=== PATIENT | male | born 1940 | race Caucasian/White ===

== ENCOUNTER → 2018-07-08 | Outpatient (CLI) | payer MEDICARE ==
--- NOTE | 2018-07-08 23:28 | CONS ---
CONSULTATION DATE OF SERVICE: 07/08/2018 77-year-old gentleman who has been evaluated in the [facility] for symptoms of significant excessive daytime sleepiness. HISTORY OF PRESENT ILLNESS/SLEEP-WAKE EVALUATION: SLEEP SCHEDULE: Patient usually goes to bed late, around midnight and after that he may wake up at about 1-1/2 hour. FALLING ASLEEP: Has difficulties to fall asleep for 3 hours. Finally he gets out of bed around 9 or 10 a.m. DURING SLEEP: He does snore but mildly. He never had been told about episodes of stopped breathing during the sleep. He may wake up from sleep up to 3 times with up to 3 episodes of nocturia. He usually sleeps on the side position. DURING THE DAY/SLEEP WAKE EVALUATION: In the morning, he wakes up tired, falling asleep during the day, worry about his sleep. Episodes of irritability and depression. [place] Sleepiness Scale significantly increased to 19, including episodes of sleepiness while driving a car. No clear history of hypnagogic hallucinations, sleep paralysis or cataplexy. Sometimes patient falls asleep in the middle of the day unpredictably. He does not have any scheduled nap, but he may fall asleep in different situation during the day when he is not busy. PAST MEDICAL HISTORY: Positive for hepatitis, diabetes mellitus, hyperlipidemia, acid reflux, hypertension, coronary artery disease. PAST SURGICAL HISTORY: Stent insertions to coronary arteries and total left knee replacement. MEDICATIONS: Hydrocodone, fluticasone, metoprolol, metformin, glyburide, simvastatin, omeprazole, lisinopril, modafinil. [place] Sleepiness Scale is 19. FAMILY HISTORY: Hypertension, hyperlipidemia, cancer, snoring. REVIEW OF SYSTEMS: Sometimes awakenings from sleep and significant excessive daytime sleepiness. Symptoms of sleepiness are every day. PHYSICAL EXAM: GENERAL: gentleman without distress. VITAL SIGNS: BP 168/85, HR 81, RR 18, height 5 feet and 7 inches, weight 174.4 pounds, temperature 98.0. Oxygen saturation: 98%. Body mass index 29.8. HEENT: Oropharynx low position of soft palate. Mallampati III. Wide pillars. Wide neck 16 inches in circumference. Neck Supple, no JVD. Thyroid is not palpable. LUNGS Clear to percussion and to auscultation. Good air exchange. No wheezing or rhonchi. HEART S1, S2 regular. No murmurs, gallops, or rubs. ABDOMEN: Obese. Soft and nontender. Bowel sounds are present. No organomegaly appreciated. EXTREMITIES No clubbing or cyanosis. INSPECTOR FLOOR SUB ASSEMBLY Awake, alert, and oriented X3. Cranial nerves 2 to 7 intact. There is no fasciculation or atrophy. noted. No focal deficits observed. IMPRESSION: 1. Mild snoring, small oropharyngeal air space, occasional awakenings from sleep, possible obstructive sleep apnea-hypopnea syndrome. 2. Wide neck possible obstructive sleep apnea-hypopnea syndrome. 3. Significant excessive daytime sleepiness. [place] Sleepiness Scale is 19. Patient is able to sleep at any time if he is not busy. Differential diagnosis includes hypersomnia including narcolepsy. 4. History hypertension. 5. Coronary artery disease, status post stent insertion. 6. Diabetes mellitus. 7. History of hepatitis. 8. Status post nasal surgery for nasal septum deviation. 9. Status post total left knee replacement. PLAN: 1. Multiple sleep latency test if sleep study will be negative for obstructive sleep apnea-hypopnea syndrome. 2. Polysomnography for evaluation of patient's breathing during sleep. 3. CPAP/BiPAP titration if sleep study confirms obstructive sleep apnea-hypopnea syndrome. 4. Preferable position during sleep on the side. 5. No driving if patient feels any sleepiness. 6. I will see patient for follow up visit to explain results of testing and following plan. Thank you very much for referring this patient for consultation. Sincerely, Kolton Cardozo MD, PhD, FAASM Diplomat of [place] [employer] [place] [employer] [place] Department Worker of [facility] [place] MMODL / IJN: [id number] /
== END ==
LOC: SLEEP 13:36
PROVIDERS: ATTEND Internal Medicine
DX: G47.10 Hypersomnia, unspecified (principal); I10 Essential (primary) hypertension; I25.10 Atherosclerotic heart disease of native coronary artery without angina pectoris; E11.9 Type 2 diabetes mellitus without complications; Z86.19 Personal history of other infectious and parasitic diseases; Z98.890 Other specified postprocedural states; Z96.652 Presence of left artificial knee joint; Z95.5 Presence of coronary angioplasty implant and graft; Z79.899 Other long term (current) drug therapy; Z79.891 Long term (current) use of opiate analgesic; Z79.84 Long term (current) use of oral hypoglycemic drugs
CPT/HCPCS: 99211

== ENCOUNTER → 2020-06-06 | Outpatient (CLI) | payer MEDICARE ==
--- NOTE | 2020-06-06 16:42 | SFUN ---
SLEEP CENTER FOLLOW UP NOTE DATE OF SERVICE: 06/06/2020 79-year-old gentleman who has been followed in Sleep Center for treatment of significant excessive daytime sleepiness and possible obstructive sleep apnea-hypopnea syndrome. I saw patient in July of 2018, and at that time because of significant excessive daytime sleepiness, and indication of possible sleep apnea, sleep study was ordered, but because his multiple times came to the hospital and for that reason, patient was not able to proceed with the sleep test. Presently, he continued to have continued to have sleep problems. Wakes up from sleep 3 times with 3 episodes of nocturia. He feels significantly sleepy during the day. [place] Sleepiness Scale is 19. MEDICATIONS: Hydrocodone acetaminophen 7.5/325 mg 1-2 times a day, fluticasone, metoprolol tartrate 25 mg twice a day, metformin 1000 mg twice a day, glyburide 5 mg, simvastatin 40 mg once a day, omeprazole 20 mg once a day, lisinopril 20 mg twice a day. Modafinil 200 mg once a day, Sertraline 50 mg once a day. PHYSICAL EXAM: Patient in no distress. BP 140/79, HR 57, RR 14, height 5 feet 7 inches, weight 173.4, temperature 98.5, oxygen saturation at room air 99%. HEENT: PERRLA, EOMI. Oropharynx low position of soft palate. Mallampati 3. NECK: Supple, no JVD. Thyroid is not palpable. LUNGS: Clear to percussion and to auscultation. Good air exchange. No wheezing or rhonchi. HEART: S1, S2 regular. No murmurs, gallops, or rubs. ABDOMEN: Soft and nontender. Bowel sounds are present. No organomegaly appreciated. EXTREMITIES: No clubbing or cyanosis. HEALTH PLAN MANAGER: Awake, alert, and oriented X3. Cranial nerves 2 to 7 intact. There is no fasciculation or atrophy. noted. No focal deficits observed. IMPRESSION: 1. Snoring, extremely low position of soft palate, multiple awakenings from sleep, sleepiness, possible obstructive sleep apnea-hypopnea syndrome. 2. Significant excessive daytime sleepiness. [place] Sleepiness Scale is 19. Differential diagnosis includes hypersomnia and narcolepsy type 2. 3. Hypertension. 4. Coronary artery disease, status post stent insertion. 5. Diabetes mellitus. 6. History of hepatitis. 7. Status post nasal surgery for nasal septum deviation. 8. Status post total left knee replacement. PLAN: 1. Home sleep apnea test to check patient breathing during sleep. 2. The patient is a candidate for multiple sleep latency test for objective evaluation of symptoms of excessive daytime sleepiness. 3. Sleep hygiene with regular time in bed for 7-1/2 to 8 hours. 4. No driving if feeling sleepiness. 5. I will see patient for follow-up visit to explain results of the test and following plan. Thank you very much for allowing me to participate in management of your patient. Sincerely, Kolton Cardozo MD, PhD, FAASM Diplomat of [place] [employer] [place] [employer] Barrel Dedenting Machine Operator of [facility] [place] MMODL / OELGN: [id number] /
== END | disposition home or self-care (01) ==

== ENCOUNTER → 2021-12-20 | Outpatient (CLI) | payer MEDICARE ==
[2021-12-20 15:19] LABS: HCT 36.3 % (39.6-50.0); MCH 28.8 pg (27.0-32.0); MCHC 33.1 g/dL (32.0-37.0); MCV 87.1 fL (80.0-97.0); NRBC Per 100 WBC 0 /100 WBCS (0.0-0.0); Platelet Count 264 X 10*3/uL (140-440); RBC 4.17 X 10*6/uL (4.40-5.60); RDW 14.2 % (11.5-14.5)
[2021-12-20 16:22] LABS: ALT 24 U/L (10-49); AST 25 U/L (14-35); African American GFR (CKD) 60.1 (60.0-200.0); BUN/Creat Ratio 11.08 Ratio (12.00-20.00); Blood Urea Nitrogen 14.4 mg/dL (9.0-27.0); Calcium 9.4 mg/dL (8.7-10.3); Carbon Dioxide 22.3 mmol/L (20.0-27.5); Chloride 102 mmol/L (96-109); Glucose 161 mg/dL (70-110); Non-African American GFR(CKD) 51.9 (60.0-200.0); Sodium 134 mmol/L (135-145)
[2021-12-20 16:23] LABS: Chol/HDL Ratio 2.76 Ratio; LDL Cholesterol,Calculated 66.9 mg/dL (0.0-131.0); VLDL Calculation 19.12 mg/dL (5.00-40.00)
== END | disposition home or self-care (01) ==
LOC: LABWHC1 10:42
PROVIDERS: ATTEND Family Medicine
DX: E11.9 Type 2 diabetes mellitus without complications (principal); E78.5 Hyperlipidemia, unspecified; E87.1 Hypo-osmolality and hyponatremia
CPT/HCPCS: 36415; 80048; 80061; 83036; 83930; 84450; 84460; 85027

== ENCOUNTER → 2022-01-21 | Outpatient (CLI) | payer MEDICARE ==
--- NOTE | 2022-01-21 17:15 | MR ---
EXAMINATION TYPE: MR brain wo con DATE OF EXAM: 01/21/2022 4:03 PM COMPARISON: None. CLINICAL INDICATION:Male, 81 years old with history of R26.9 UNSPECIFIED ABNORMALITIES OF GAIT AND MO BILI TECHNIQUE: Multi planar, multi sequence imaging was performed through the brain including: T1, T2, In version recovery, Diffusion weighted imaging, susceptibility weighted imaging, and gradient echo imag ing. No gadolinium was given. FINDINGS: The torres-white junctions, ventricular system, and cisterns appear unremarkable. Scattered foci of hi gh T2 signal intensity are seen within the periventricular white matter. Midline structures show no a bnormality. Diffusion-weighted imaging shows no evidence of restricted diffusion. The susceptibility weighted images do not reveal any evidence for micro-hemorrhage. The bone marrow signal is within normal limits. The paranasal sinuses demonstrate mucosal thickening in the bilateral maxillary sinuses. Bilateral aphakia. There is a right anterior cerebral artery to/anterior communicating artery saccular aneurysm measurin g up to 5 mm. IMPRESSION: 1. No evidence of intracranial mass or acute/subacute infarct. 2. 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 3. Nonspecific white matter changes, likely secondary to small vessel ischemic disease.
== END | disposition home or self-care (01) ==
LOC: RADMRIMAIN 15:16
PROVIDERS: ATTEND Family Medicine
DX: R90.82 White matter disease, unspecified (principal); I67.82 Cerebral ischemia
CPT/HCPCS: 70551

== ENCOUNTER → 2022-10-28 | Outpatient (CLI) | payer MEDICARE ==
[2022-10-28 15:38] LABS: HCT 40.9 % (39.6-50.0); HGB 13.6 d/dL (13.0-17.0); MCH 31.1 pg (27.0-32.0); MCHC 33.3 d/dL (32.0-37.0); MCV 93.6 FL (80.0-97.0); Mean Platelet Volume 10.4 FL (9.5-12.2); NRBC Per 100 WBC 0 X 10*3/uL (0.00-0.01); Platelet Count 216 X 10*3/uL (140-440); RBC 4.37 X 10*6/uL (4.40-5.60); RDW 14.4 % (11.5-14.5); WBC 6.58 X 10*3/uL (4.50-10.00)
[2022-10-28 16:07] LABS: ALT 33 U/L (10-49); AST 32 U/L (14-35); Albumin 4.5 d/dL (3.8-4.9); Albumin/Globulin Ratio 1.41 Ratio (1.60-3.17); Alkaline Phosphatase 58 U/L (41-126); Blood Urea Nitrogen 12.1 mg/dL (9.0-27.0); Calcium 9.4 mg/dL (8.7-10.3); Carbon Dioxide 24.4 mmol/L (21.6-31.8); Chloride 100 mmol/L (96-109); Globulin 3.2 d/dL (1.6-3.3); Glucose 148 mg/dL (70-110); Potassium 4.9 mmol/L (3.5-5.5); Sodium 135 mmol/L (135-145); Total Bilirubin 0.6 mg/dL (0.3-1.2); Total Protein 7.7 d/dL (6.2-8.2)
== END | disposition home or self-care (01) ==
LOC: LABWHC1 11:50
PROVIDERS: ATTEND Family Medicine
DX: I10 Essential (primary) hypertension (principal); E11.9 Type 2 diabetes mellitus without complications; N40.1 Benign prostatic hyperplasia with lower urinary tract symptoms; R41.3 Other amnesia
CPT/HCPCS: 36415; 80053; 82306; 82607; 82746; 83036; 84153; 84443; 85027

== ENCOUNTER → 2022-10-31 | Outpatient (CLI) | payer MEDICARE | END | disposition home or self-care (01) | LOC: LABWHC1 12:01 | PROVIDERS: ATTEND Family Medicine | DX: R71.8 Other abnormality of red blood cells (principal) | CPT/HCPCS: 36415; 83921 ==

== ENCOUNTER → 2023-01-21 | Outpatient (CLI) | payer MEDICARE ==
--- NOTE | 2023-01-21 21:21 | MR ---
EXAMINATION TYPE: MR brain wo/w con DATE OF EXAM: 01/21/2023 6:36 PM CLINICAL INDICATION:Male, 82 years old with history of I67.1 CEREBRAL ANEURYSM NONRUPTURED; PHH, Cere bral aneurysm, dizziness, vertigo, brain fog. COMPARISON: 01/21/2022 TECHNIQUE: Multi planar, multi sequence imaging was performed through the brain including: T1, T2, In version recovery, susceptibility weighted imaging and gradient echo imaging and Diffusion weighted im aging. The patient was then given intravenous contrast and multi planar, T1 fat-saturation images wer e obtained. IV Contrast: 7 cc Gadavist FINDINGS: Redemonstration of right LUIS M/anterior communicating artery saccular aneurysm measuring up to 5 mm. Mi ld cerebral atrophy with proportional dilation of ventricular system. Diffusion-weighted imaging jude ws no evidence of restricted diffusion to suggest acute/subacute infarct. Intracranial arterial flow voids are maintained. Midline structures show no abnormality. Scattered foci of high T2 signal intens ity are seen within the periventricular white matter. The susceptibility weighted images do not revea l any evidence for micro-hemorrhage. After administration of gadolinium, no abnormal enhancement is s een. The bone marrow signal is within normal limits. Paranasal sinuses and mastoid air cells: Mild mucosal thickening of the left maxillary sinus. Visualized orbits: Bilateral aphakia. IMPRESSION: 1. Stable saccular aneurysm arising off the anterior cerebral artery and anterior communicating arter y junction and measures up to 5 mm. 2. No evidence of intracranial mass, acute/subacute infarct, or abnormal enhancement. 3. Nonspecific white matter changes, likely related to small vessel ischemic disease.
== END | disposition home or self-care (01) ==
LOC: RADMRIMAIN 17:51
PROVIDERS: ATTEND Family Medicine
DX: I67.1 Cerebral aneurysm, nonruptured (principal); G93.89 Other specified disorders of brain
CPT/HCPCS: 70553; A9585

== ENCOUNTER → 2023-01-27 | Outpatient (CLI) | payer MEDICARE ==
[2023-01-27 18:16] LABS: HGB 13.3 g/dL (13.0-17.0); MCH 31.5 pg (27.0-32.0); MCHC 33.3 g/dL (32.0-37.0); MCV 94.8 FL (80.0-97.0); Mean Platelet Volume 10.9 FL (9.5-12.2); NRBC Per 100 WBC 0 X 10*3/uL (0.00-0.01); Platelet Count 231 X 10*3/uL (140-440); RBC 4.22 X 10*6/uL (4.40-5.60); RDW 12.9 % (11.5-14.5)
[2023-01-27 20:42] LABS: ALT 39 U/L (10-49); AST 28 U/L (14-35); BUN/Creat Ratio 14.31 Ratio (12.00-20.00); Blood Urea Nitrogen 18.6 mg/dL (9.0-27.0); Calcium 9.9 mg/dL (8.7-10.3); Carbon Dioxide 24.5 mmol/L (21.6-31.8); Chloride 100 mmol/L (96-109); Glucose 71 mg/dL (70-110); Potassium 4.9 mmol/L (3.5-5.5); Prostate Specific Antigen 8.17 ng/mL (0.000-6.500); Sodium 135 mmol/L (135-145)
== END | disposition home or self-care (01) ==
LOC: LABWHC1 13:07
PROVIDERS: ATTEND Family Medicine
DX: I10 Essential (primary) hypertension (principal); N40.1 Benign prostatic hyperplasia with lower urinary tract symptoms; E55.9 Vitamin D deficiency, unspecified
CPT/HCPCS: 36415; 80048; 82306; 83036; 84153; 84450; 84460; 85027

== ENCOUNTER → 2023-02-24 | Outpatient (CLI) | payer MEDICARE ==
--- NOTE | 2023-02-24 17:29 | US ---
EXAMINATION TYPE: US extremity nonvascular ltd RT DATE OF EXAM: 02/24/2023 COMPARISON: NONE CLINICAL INDICATION: Male, 82 years old with history of M71.21 SYNOVIAL CYST OF POPLITEAL SPACE R MIO Gusman; Channel Worker notes: Right popliteal fossa: 6.8 x 1.5 x 3.1cm Nelson's cyst seen with a round 8 mm mural based nodule inferiorly. IMPRESSION: Elongated, moderate-sized Nelson's cyst measuring 6.8 cm long with some mild chronic syno vitis. An 8 mm internal nodule could represent some clumped up synovium or loose body. Reassess at a 3 month follow-up.
== END | disposition home or self-care (01) ==
LOC: RADUSWWP 14:40
PROVIDERS: ATTEND Family Medicine
DX: M71.21 Synovial cyst of popliteal space [Baker], right knee (principal); M65.9 Synovitis and tenosynovitis, unspecified

== ENCOUNTER → 2023-03-21 | Outpatient (CLI) | payer MEDICARE ==
--- NOTE | 2023-03-22 21:50 | MR ---
EXAMINATION TYPE: MR Prostate wo/w con DATE OF EXAM: 03/21/2023 11:07 AM COMPARISON: None. CLINICAL INDICATION:Male, 82 years old with history of R97.20 ELEVATED PSA; Elevated PSA. TECHNIQUE: Multi-planar, multi-sequence imaging of the pelvis is performed prior to and following the uncomplicated administration of bolus intravenous gadolinium. CONTRAST: 6.5 Gadavist Interpretive Criteria: PI-RADS v2.1 SERUM PSA: 8.37 on 01/27/2023. 7.7 on 10/28/2022. SURGICAL PATHOLOGY: No recent data available. FINDINGS: Prostatic dimensions: 5.0 x 7.0 x 4.5 cm. Ellipsoid Volume:82.47 (PSA density=0.10 ng/mL/mL) CENTRAL GLAND (Central and Transition Zones/CZ+TZ): Multiple bilateral, heterogenous appearing hypertrophic stromal nodules, without suspicious lesion. M edian lobe hypertrophy with protrusion into the base of the bladder. (PI-RADS 2) PERIPHERAL ZONE (PZ): Right lateral peripheral zone mid gland low T2 signal with subtle increased DWI signal on T1 B1000 in the lower DWI signal in the B1400 sequences. There is some gas in the rectum which limits evaluation . On the DWI B1000 sequences and may be mildly low ADC signal. Area measures 22 x 19 x 7 mm. (PI-RA DS 3) SEMINAL VESICLES (SV): Symmetric and unremarkable. PERIPROSTATIC TISSUES: Unremarkable. LYMPH NODES: No enlarged pelvic lymph node. REMAINING PELVIS: Bladder wall is within normal limits given distention. No abnormal free or organized intrapelvic fluid collection. No pathologic bowel dilation or mural thickening. No hernia visualized Trace bilateral hydroceles. OSSEOUS STRUCTURES: No suspicious osseous abnormality. IMPRESSION: 1. PI-RADS 3 lesion right peripheral zone mid gland measuring 22 x 19 x 7 mm. Tissue sampling recomme nded. 2. Moderate BPH, estimated gland volume 82.47 mL. 3. No suspicious osseous lesion. No lymphadenopathy. No evidence of prostate adenocarcinoma involving the periprostatic tissues.
== END | disposition home or self-care (01) ==
LOC: RADMRIMAIN 09:45
PROVIDERS: ATTEND Urology
DX: N40.0 Benign prostatic hyperplasia without lower urinary tract symptoms (principal); R97.20 Elevated prostate specific antigen [PSA]
CPT/HCPCS: 72197; A9585

== ENCOUNTER → 2023-04-24 | Outpatient (CLI) | payer MEDICARE ==
[2023-04-24 19:02] LABS: Basophils # (A) 0.06 X 10*3/uL (0.00-0.10); Basophils % (A) 0.7 %; Eosinophils # (A) 0.27 X 10*3/uL (0.04-0.35); Eosinophils % (A) 3.3 %; HCT 43.2 % (39.6-50.0); HGB 14.3 g/dL (13.0-17.0); Lymphocytes # (A) 1.84 X 10*3/uL (0.90-5.00); Lymphocytes % (A) 22.7 %; MCH 31.2 pg (27.0-32.0); MCHC 33.1 g/dL (32.0-37.0); MCV 94.3 FL (80.0-97.0); Monocytes # (A) 0.87 X 10*3/uL (0.20-1.00); Monocytes % (A) 10.7 %; NRBC Per 100 WBC 0 X 10*3/uL (0.00-0.01); Neutrophils # (A) 5.05 X 10*3/uL (1.80-7.70); Neutrophils % (A) 62.2 %; Platelet Count 252 X 10*3/uL (140-440); RBC 4.58 X 10*6/uL (4.40-5.60); WBC 8.12 X 10*3/uL (4.50-10.00)
[2023-04-24 20:06] LABS: BUN/Creat Ratio 18.33 Ratio (12.00-20.00); Calcium 10.1 mg/dL (8.7-10.3); Carbon Dioxide 25.1 mmol/L (21.6-31.8); Chloride 96 mmol/L (96-109); Glucose 128 mg/dL (70-110); Potassium 4.7 mmol/L (3.5-5.5); Sodium 137 mmol/L (135-145)
== END | disposition home or self-care (01) ==
LOC: LABPAT 13:20
PROVIDERS: ATTEND Urology
DX: Z01.812 Encounter for preprocedural laboratory examination (principal); R97.20 Elevated prostate specific antigen [PSA]
CPT/HCPCS: 80048; 85025

== ENCOUNTER 2023-04-30 10:06 | Day surgery (SDC) | payer MEDICARE ==
--- NOTE | 2023-04-28 16:31 | P.GSHP ---
History of Present Illness H&P Date: 04/28/23 Chief Complaint: Elevated PSA level The patient is an 82-year-old white male with a family history of prostate cancer. His PSA level has been persistently elevated and was most recently 8.17 in January 2023. He has undergone 3 previous prostate biopsies, most recently in 2002. Recent MRI has shown a prostate volume of 82 cc with a 2 cm PI-RADS 3 lesion within the right peripheral zone, mid gland. He now comes for MRI fusion biopsies. He has chronic urinary retention, for which he self catheterizes 4 times daily. - Cardiovascular Cardiovascular: Reports high blood pressure - Genitourinary (Male) Genitourinary: Reports urinary retention Past Medical History Past Medical History: Diabetes Mellitus, GERD/Reflux, Hearing Disorder / Deafness, Hyperlipidemia, Hypertension, Osteoarthritis (OA), Prostate Disorder Additional Past Medical History / Comment(s): elevated PSA, fatty liver, vertigo History of Any Multi-Drug Resistant Organisms: None Reported Past Surgical History: Heart Catheterization With Stent, Hernia Repair, Joint Replacement Additional Past Surgical History / Comment(s): left knee replaced x2, deviated septum repair Past Anesthesia/Blood Transfusion Reactions: No Reported Reaction Date of Last Stent Placement:: unk Smoking Status: Former smoker Medications and Allergies Home Medications Medication Instructions Recorded Confirmed Type Ferosul 325 mg PO DAILY 04/28/23 04/28/23 History Metoprolol Tartrate 25 mg PO QAM 04/28/23 04/28/23 History NIFEdipine [Adalat CC] 30 mg PO DAILY 04/28/23 04/28/23 History Omeprazole [PriLOSEC] 20 mg PO AC-BRKFST 04/28/23 04/28/23 History Simvastatin [Zocor] 40 mg PO HS 04/28/23 04/28/23 History lisinopriL [Zestril] 20 mg PO BID 04/28/23 04/28/23 History metFORMIN HCL [Glucophage] 1,000 mg PO QAM 04/28/23 04/28/23 History metFORMIN HCL [Glucophage] 500 mg PO HS 04/28/23 04/28/23 History sitaGLIPtin [Januvia] 100 mg PO DAILY 04/28/23 04/28/23 History Allergies Allergy/AdvReac Type Severity Reaction Status Date / Time No Known Allergies Allergy Verified 04/28/23 11:10 Surgical - Exam - General well developed, well nourished, no distress - Respiratory normal respiratory effort - Abdomen Abdomen: soft, non tender, no guarding, no rigid, no rebound - Genitourinary normal penis with no external lesions, testicles non-tender - Rectum Rectum: normal sphincter tone, no masses, other (Prostate moderately enlarged but smooth) - Psychiatric oriented to time, oriented to person, oriented to place, speech is normal, memory intact Assessment and Plan (1) Elevated prostate specific antigen [PSA] Status: Acute Code(s): R97.20 - ELEVATED PROSTATE SPECIFIC ANTIGEN [PSA] SNOMED Code(s): 108518541 Plan: The patient will undergo MRI-Ultrasound fusion transrectal biopsies of the prostate. The procedure has been reviewed in detail with the patient. He has been made aware of potential risks, which include anesthesia, bleeding, and infection. He is also aware that a negative biopsy does not completely rule out prostate cancer.
[~2023-04-30 10:06] MED LIST: HYDROmorphone 0.5 MG/0.5 ML SYRINGE IVP PRN
[2023-04-30] MEDS: GENTAMICIN 40 MG/ML 2 ML VIAL IM PRN (10:45)
[2023-04-30] MEDS: DEXAMETHASONE SOD PHOSPHATE 4 MG/ML 1 ML VIAL IV ONE (10:57)
[2023-04-30] MEDS: ONDANSETRON 4 MG/2 ML VIAL IVP ONE (10:57)
[2023-04-30] MEDS: LACTATED RINGERS 1,000 ML IV SCH (10:57)
[2023-04-30 11:04] LABS: Glucose,Whole Blood 129 mg/dL (70-110)
[2023-04-30 11:07] VITALS: TEMP 99
[2023-04-30] MEDS ORDERED: PROPOFOL 10 MG/ML 20 ML VIAL IV ONE (11:52)
--- NOTE | 2023-04-30 12:16 | P.OP ---
Date of Procedure: 04/30/23 Preoperative Diagnosis: Elevated PSA level Postoperative Diagnosis: Same Procedure(s) Performed: MRI ultrasound-guided fusion biopsies of the prostate Anesthesia: MAC Surgeon: Loki Melgar Estimated Blood Loss (ml): 5 IV fluids (ml): 100 Pathology: other (Prostate biopsies) Condition: stable Disposition: PACU Indications for Procedure: The patient is an 82-year-old white male with a family history of prostate cancer. His PSA level has been persistently elevated and was most recently 8.17 in January 2023. He has undergone 3 previous prostate biopsies, most recently in 2002. Recent MRI has shown a prostate volume of 82 cc with a 2 cm PI-RADS 3 lesion within the right peripheral zone, mid gland. He now comes for MRI fusion biopsies. He has chronic urinary retention, for which he self catheterizes 4 times daily. Operative Findings: 12 template biopsies sent, along with 3 biopsies from right apical peripheral zone target lesion. Description of Procedure: The patient was taken to the operating room and placed in the left lateral decubitus position. NAOMIE revealed the prostate to be moderately enlarged, with right base prominence but no nodules. The [employer] transrectal ultrasound probe was placed intrarectally. It was then placed within the stand of the [employer] MRI/TRUS Fusion for Prostate Biopsy system. The prostate was imaged in both the axial and sagittal planes, revealing a prostate volume of 63.3 mL. Using the Biopty gun, 3 biopsies were obtained from the target lesion labeled right anterior posteromedial peripheral zone. The remaining 12 biopsies of the peripheral zone were obtained utilizing a standard template. Once the procedure was completed, the ultrasound probe was removed. The patient tolerated the procedure well was taken to the recovery room stable condition.
[2023-04-30 12:43] VITALS: RESP 16
[2023-04-30 13:15] VITALS: BP 115/74; PULSE 60
== END 2023-04-30 12:56 | disposition home or self-care (01) ==
LOC: OR 10:06
PROVIDERS: ATTEND Urology
DX: C61 Malignant neoplasm of prostate (principal); E11.9 Type 2 diabetes mellitus without complications; E78.5 Hyperlipidemia, unspecified; I10 Essential (primary) hypertension; K21.9 Gastro-esophageal reflux disease without esophagitis; Z79.84 Long term (current) use of oral hypoglycemic drugs; Z87.891 Personal history of nicotine dependence; Z79.899 Other long term (current) drug therapy
CPT/HCPCS: 55700; J1580; J1100; J2405; J2704; 88305; 88344

== ENCOUNTER → 2023-06-18 | Outpatient (CLI) | payer MEDICARE ==
[2023-06-18 18:48] LABS: HGB 14.2 g/dL (13.0-17.0); MCH 30.5 pg (27.0-32.0); MCHC 32.3 g/dL (32.0-37.0); MCV 94.4 FL (80.0-97.0); Mean Platelet Volume 11.1 FL (9.5-12.2); NRBC Per 100 WBC 0 X 10*3/uL (0.00-0.01); Platelet Count 250 X 10*3/uL (140-440); RBC 4.66 X 10*6/uL (4.40-5.60); RDW 13.2 % (11.5-14.5); WBC 8.49 X 10*3/uL (4.50-10.00)
[2023-06-18 19:34] LABS: ALT 26 U/L (10-49); AST 22 U/L (14-35); Albumin 4.6 g/dL (3.8-4.9); Albumin/Globulin Ratio 1.18 Ratio (1.60-3.17); Alkaline Phosphatase 65 U/L (41-126); BUN/Creat Ratio 16.92 Ratio (12.00-20.00); Calcium 9.9 mg/dL (8.7-10.3); Chloride 100 mmol/L (96-109); Chol/HDL Ratio 4.16 Ratio; Globulin 3.9 g/dL (1.6-3.3); Glucose 126 mg/dL (70-110); LDL Cholesterol,Calculated 151.8 mg/dL (0.0-131.0); Potassium 4.4 mmol/L (3.5-5.5); Sodium 137 mmol/L (135-145); Total Bilirubin 0.7 mg/dL (0.3-1.2); Total Protein 8.5 g/dL (6.2-8.2)
== END | disposition home or self-care (01) ==
LOC: LABWHC1 13:26
PROVIDERS: ATTEND Family Medicine
DX: I10 Essential (primary) hypertension (principal); E11.9 Type 2 diabetes mellitus without complications; E78.5 Hyperlipidemia, unspecified; E55.9 Vitamin D deficiency, unspecified
CPT/HCPCS: 36415; 80053; 80061; 82306; 83036; 84443; 85027

== ENCOUNTER → 2023-07-29 | Outpatient (CLI) | payer MEDICARE | END | disposition home or self-care (01) | LOC: LABWHC1 16:07 | PROVIDERS: ATTEND Urology | DX: C61 Malignant neoplasm of prostate (principal) | CPT/HCPCS: 36415; 84153 ==

== ENCOUNTER → 2023-12-17 | Outpatient (CLI) | payer MEDICARE | END | disposition home or self-care (01) | LOC: LABWHC1 15:01 | PROVIDERS: ATTEND Urology | DX: C61 Malignant neoplasm of prostate (principal) | CPT/HCPCS: 36415; 84153 ==

== ENCOUNTER → 2024-01-04 | Outpatient (CLI) | payer MEDICARE ==
[2024-01-05 02:52] LABS: Basophils # (A) 0.03 X 10*3/uL (0.00-0.10); Basophils % (A) 0.4 %; Eosinophils # (A) 0.09 X 10*3/uL (0.04-0.35); Eosinophils % (A) 1.3 %; HCT 39.9 % (39.6-50.0); HGB 12.9 g/dL (13.0-17.0); Lymphocytes # (A) 1.88 X 10*3/uL (0.90-5.00); MCH 30.7 pg (27.0-32.0); MCHC 32.3 g/dL (32.0-37.0); Monocytes # (A) 0.79 X 10*3/uL (0.20-1.00); Monocytes % (A) 11.4 %; NRBC Per 100 WBC 0 X 10*3/uL (0.00-0.01); Neutrophils # (A) 4.15 X 10*3/uL (1.80-7.70); Neutrophils % (A) 59.6 %; Platelet Count 233 X 10*3/uL (140-440); RDW 13.5 % (11.5-14.5); WBC 6.96 X 10*3/uL (4.50-10.00)
[2024-01-05 03:39] LABS: % Iron Saturation 24.48 (15.00-50.00); ALT 28 U/L (10-49); AST 30 U/L (14-35); BUN/Creat Ratio 19.17 Ratio (12.00-20.00); Calcium 9.8 mg/dL (8.7-10.3); Carbon Dioxide 22.7 mmol/L (21.6-31.8); Chloride 100 mmol/L (96-109); Glucose 92 mg/dL (70-110); Iron 82 UG/DL (65-175); Potassium 5.1 mmol/L (3.5-5.5); Sodium 135 mmol/L (135-145); Total Iron Binding Capacity 335 UG/DL (228-460)
== END | disposition home or self-care (01) ==
LOC: LABWHC1 14:47
PROVIDERS: ATTEND Family Medicine
CPT/HCPCS: 36415; 80048; 82306; 82728; 83036; 83540; 83550; 84443; 84450; 84460; 85025

== ENCOUNTER → 2024-01-21 | Outpatient (CLI) | payer MEDICARE | END | disposition home or self-care (01) | LOC: LABWHC1 12:28 | PROVIDERS: ATTEND Urology | DX: R97.20 Elevated prostate specific antigen [PSA] (principal) | CPT/HCPCS: 36415; 84153 ==

== ENCOUNTER 2024-04-01 15:05 | Inpatient (IN) | payer MEDICARE ==
[2024-04-01] MEDS: SODIUM CHLORIDE 0.9% 1,000 ML IV STA (16:42)
--- NOTE | 2024-04-01 16:55 | ED ---
Weakness HPI - General Chief complaint: Weakness Stated complaint: cough,fever Time Seen by Provider: 04/01/24 15:57 Source: patient, RN/MD, RN notes reviewed Mode of arrival: ambulatory Limitations: no limitations - History of Present Illness Initial comments: This is an 83-year-old male who presents to the emergency department for a cough and weakness. Patient states that he developed a cough 4 days ago. States that he has felt increasingly weak and fatigued. He has had the chills but has not taken his temperature. Denies any chest pain or shortness of breath. Also denies any sick contacts. He went to urgent care earlier today but was advised to come here for further evaluation due to low blood pressure and an elevated temperature. Patient is somewhat of a poor historian and not wanting to provide much history. There was report that he had fallen over the last couple of days but had been too weak to get himself up quickly. MD Complaint: generalized weakness - Related Data Home Medications Medication Instructions Recorded Confirmed Omeprazole [PriLOSEC] 20 mg PO DAILY 04/28/23 04/01/24 metFORMIN HCL [Glucophage] 1,000 mg PO DAILY 04/28/23 04/01/24 metFORMIN HCL [Glucophage] 500 mg PO W/SUPPER 04/28/23 04/01/24 sitaGLIPtin [Januvia] 100 mg PO DAILY 04/28/23 04/01/24 Albuterol Inhaler [Ventolin Hfa 2 puff INHALATION RT-Q4H PRN 04/01/24 04/01/24 Inhaler] Benzonatate [Tessalon Perle] 200 mg PO DIRECTED PRN 04/01/24 04/01/24 Meclizine [Antivert] 12.5 mg PO TID PRN 04/01/24 04/01/24 NIFEdipine XL [Procardia Xl] 30 mg PO DAILY 04/01/24 04/01/24 Nirmatrelvir/Ritonavir [Paxlovid 1 dose PO DIRECTED 04/01/24 04/01/24 150-100 mg Dose Pack] tadalafiL 20 mg PO DAILY PRN 04/01/24 04/01/24 Allergies Allergy/AdvReac Type Severity Reaction Status Date / Time No Known Allergies Allergy Verified 04/01/24 19:14 Review of Systems ROS Statement: Those systems with pertinent positive or pertinent negative responses have been documented in the HPI. ROS Other: All systems not noted in ROS Statement are negative. Past Medical History Past Medical History: Diabetes Mellitus Past Surgical History: Joint Replacement Smoking Status: Former smoker Past Alcohol Use History: None Reported Past Drug Use History: None Reported General Exam Limitations: no limitations General appearance: alert, in no apparent distress Head exam: Present: atraumatic, normocephalic, normal inspection Respiratory exam: Present: normal lung sounds bilaterally. Absent: respiratory distress, wheezes, rales, rhonchi, stridor Cardiovascular Exam: Present: regular rate, normal rhythm, normal heart sounds. Absent: systolic murmur, diastolic murmur, rubs, gallop, clicks Neurological exam: Present: alert, oriented X3, CN II-XII intact Psychiatric exam: Present: normal affect, normal mood Skin exam: Present: warm, dry, intact, normal color. Absent: rash Course Vital Signs 04/01/24 04/01/24 04/01/24 15:42 17:35 19:25 Temperature 99.5 F 99.2 F 99.2 F Pulse Rate 75 70 57 L Pulse Rate [ Pulse Oximetery ] Respiratory 18 19 18 Rate Blood Pressure 105/58 134/76 131/82 Blood Pressure [Right Arm] O2 Sat by Pulse 96 98 96 Oximetry 04/01/24 04/01/24 21:08 21:30 Temperature 99.0 F 98.1 F Pulse Rate 56 L Pulse Rate [ 58 L Pulse Oximetery ] Respiratory 16 16 Rate Blood Pressure 135/97 Blood Pressure 142/74 [Right Arm] O2 Sat by Pulse 97 98 Oximetry Medical Decision Making - Medical Decision Making This is an 83 year old male who presents to the emergency department for weakness and a cough. Was pt. sent in by a medical professional or institution? @ -No Did you speak to anyone other than the patient for history? @ -No Did you review nursing and triage notes? @ -Yes, and I agree, it is accurate with regards to the patient's symptoms. Were old charts reviewed? @ -No Differential Diagnosis? @ -Differential Weakness: Hypoglycemia, shock, sepsis, hyponatremia, anemia, infection, CT, ETOH, adverse medicine reaction, overdose, stroke, this is not meant to be an all-inclusive li st. EKG interpreted by me (3pts min.)? @ -EKG interpreted by me demonstrating the following: Sinus rhythm. Ventricular rate 67 bpm, CA interval 144 ms, QRS duration 143 ms, QTc 450 ms. X-rays interpreted by me (1pt min.)? @ -Chest x-ray obtained, my interpretation identifies no localized consolidations or infiltrates. CT interpreted by me (1pt min.)? @ -Not obtained U/S interpreted by me (1pt. min.)? @ -Not obtained What testing was considered but not performed? (CT, X-rays, U/S, labs)? Why? @ -None What meds were considered but not given? Why? @ -None Did you discuss the management of the patient with other professionals? @ -Yes, Perez Hess with [facility], who accepts the patient for admission. Did you reconcile home meds? @ -Yes Was smoking cessation discussed for >3mins.? @ -No Was critical care preformed (if so, how long)? @ -No Were there social determinants of health that impacted care today? How? (Homelessness, low income, unemployed, alcoholism, drug addiction, transportation, low edu. Level, literacy, decrease access to med. care, fdc, rehab)? @ -No Was there de-escalation of care discussed even if they declined? (Discuss DNR or withdrawal of care, Hospice)? @ -No What co-morbidities impacted this encounter? (DM, HTN, Smoking, COPD, CAD, Cancer, CVA, Hep., AIDS, mental health diagnosis, sleep apnea, morbid obesity)? @ -DM Was patient admitted / discharged? @ -Admitted. Lab work demonstrates signs of dehydration and an elevated troponin of 0.268. Patient positive for COVID-19. Chest x-ray reveals no acute process. Patient currently denying any chest pain. However, he has been downplaying his symptoms and is not a great historian. He has reportedly been very weak however. The elevated troponin could be related to the COVID-19. He was given 324mg of aspirin, however in discussion with ED attending we opted to avoid putting him on heparin for the meantime as he was not experiencing any active chest pain. Patient admitted to medicine for the elevated troponin and COVID-19. Serial troponins ordered and consult was placed for cardiology. Case discussed with ED attending Dr. Galo. Undiagnosed new problem with uncertain prognosis? @ -None Drug Therapy requiring intensive monitoring for toxicity (Heparin, Nitro, Insulin, Cardizem)? @ -None Were any procedures done? @ -None Diagnosis/symptom? @ -COVID-19, elevated troponin Acute, or Chronic, or Acute on Chronic? @ -Acute Uncomplicated (without systemic symptoms) or Complicated (systemic symptoms)? @ -Complicated Side effects of treatment? @ -None Exacerbation, Progression, or Severe Exacerbation] @ -Not applicable Poses a threat to life or bodily function? @ -Yes, if due to ACS can be life-threatening - Lab Data Result diagrams: 04/01/24 16:22 04/01/24 16:22 Lab Results 04/01/24 04/01/24 04/01/24 Range/Units 16:15 16:22 16:22 WBC 5.9 (3.8-10.6) k/uL RBC 4.55 (4.30-5.90) m/uL Hgb 13.4 (13.0-17.5) gm/dL Hct 41.5 (39.0-53.0) % MCV 91.3 (80.0-100.0) fL MCH 29.5 (25.0-35.0) pg MCHC 32.4 (31.0-37.0) g/dL RDW 13.5 (11.5-15.5) % Plt Count 189 (150-450) k/uL MPV 8.2 Neutrophils % 70 % Lymphocytes % 17 % Monocytes % 9 % Eosinophils % 1 % Basophils % 1 % Neutrophils # 4.1 (1.3-7.7) k/uL Lymphocytes # 1.0 (1.0-4.8) k/uL Monocytes # 0.6 (0-1.0) k/uL Eosinophils # 0.1 (0-0.7) k/uL Basophils # 0.0 (0-0.2) k/uL Sodium 136 L (137-145) mmol/L Potassium 4.4 (3.5-5.1) mmol/L Chloride 98 (98-107) mmol/L Carbon Dioxide 25 (22-30) mmol/L Anion Gap 13 mmol/L BUN 26 H (9-20) mg/dL Creatinine 1.41 H (0.66-1.25) mg/dL Est GFR (CKD-EPI)AfAm 54 (>60 ml/min/1.73 sqM) Est GFR (CKD-EPI)NonAf 47 (>60 ml/min/1.73 sqM) Glucose 120 H (74-99) mg/dL Plasma Lactic Acid Shubham (0.7-2.0) mmol/L Calcium 9.5 (8.4-10.2) mg/dL Total Bilirubin 0.8 (0.2-1.3) mg/dL AST 27 (17-59) U/L ALT 19 (4-49) U/L Alkaline Phosphatase 61 (38-126) U/L Troponin I (0.000-0.034) ng/mL NT-Pro-B Natriuret Pep 1050 pg/mL Total Protein 8.9 H (6.3-8.2) g/dL Albumin 4.5 (3.5-5.0) g/dL Influenza Type A (PCR) Not Detected (Not Detectd) Influenza Type B (PCR) Not Detected (Not Detectd) RSV (PCR) Not Detected (Not Detectd) SARS-CoV-2 (PCR) Detected A (Not Detectd) 04/01/24 04/01/24 04/01/24 Range/Units 16:22 16:22 19:25 WBC (3.8-10.6) k/uL RBC (4.30-5.90) m/uL Hgb (13.0-17.5) gm/dL Hct (39.0-53.0) % MCV (80.0-100.0) fL MCH (25.0-35.0) pg MCHC (31.0-37.0) g/dL RDW (11.5-15.5) % Plt Count (150-450) k/uL MPV Neutrophils % % Lymphocytes % % Monocytes % % Eosinophils % % Basophils % % Neutrophils # (1.3-7.7) k/uL Lymphocytes # (1.0-4.8) k/uL Monocytes # (0-1.0) k/uL Eosinophils # (0-0.7) k/uL Basophils # (0-0.2) k/uL Sodium (137-145) mmol/L Potassium (3.5-5.1) mmol/L Chloride (98-107) mmol/L Carbon Dioxide (22-30) mmol/L Anion Gap mmol/L BUN (9-20) mg/dL Creatinine (0.66-1.25) mg/dL Est GFR (CKD-EPI)AfAm (>60 ml/min/1.73 sqM) Est GFR (CKD-EPI)NonAf (>60 ml/min/1.73 sqM) Glucose (74-99) mg/dL Plasma Lactic Acid Shubham 1.6 (0.7-2.0) mmol/L Calcium (8.4-10.2) mg/dL Total Bilirubin (0.2-1.3) mg/dL AST (17-59) U/L ALT (4-49) U/L Alkaline Phosphatase (38-126) U/L Troponin I 0.268 H* 0.250 H* (0.000-0.034) ng/mL NT-Pro-B Natriuret Pep pg/mL Total Protein (6.3-8.2) g/dL Albumin (3.5-5.0) g/dL Influenza Type A (PCR) (Not Detectd) Influenza Type B (PCR) (Not Detectd) RSV (PCR) (Not Detectd) SARS-CoV-2 (PCR) (Not Detectd) - Radiology Data Radiology results: report reviewed, image reviewed Disposition Clinical Impression: COVID-19, Elevated troponin Disposition: ADMITTED IP TO THIS [facility] Time of Disposition: 17:27
[2024-04-01 16:58] LABS: Basophils % (A) 1 %; Eosinophils # (A) 0.1 k/uL (0-0.7); Eosinophils % (A) 1 %; HCT 41.5 % (39.0-53.0); HGB 13.4 gm/dL (13.0-17.5); Lymphocytes % (A) 17 %; MCH 29.5 pg (25.0-35.0); MCHC 32.4 g/dL (31.0-37.0); MCV 91.3 fL (80.0-100.0); Mean Platelet Volume 8.2; Monocytes # (A) 0.6 k/uL (0-1.0); Monocytes % (A) 9 %; Neutrophils # (A) 4.1 k/uL (1.3-7.7); Neutrophils % (A) 70 %; Platelet Count 189 k/uL (150-450); RBC 4.55 m/uL (4.30-5.90); RDW 13.5 % (11.5-15.5); WBC 5.9 k/uL (3.8-10.6)
[2024-04-01 17:04] LABS: Influenza A Not Detected (Not Detectd); Influenza B Not Detected (Not Detectd); RSV Not Detected (Not Detectd)
[2024-04-01 17:14] LABS: ALT 19 U/L (4-49); AST 27 U/L (17-59); African American GFR (CKD) 54 (>60 ml/min/1.73 sqM); Albumin 4.5 g/dL (3.5-5.0); Alkaline Phosphatase 61 U/L (38-126); Anion Gap 13 mmol/L; Blood Urea Nitrogen 26 mg/dL (9-20); Calcium 9.5 mg/dL (8.4-10.2); Carbon Dioxide 25 mmol/L (22-30); Chloride 98 mmol/L (98-107); Glucose 120 mg/dL (74-99); Non-African American GFR(CKD) 47 (>60 ml/min/1.73 sqM); Potassium 4.4 mmol/L (3.5-5.1); Sodium 136 mmol/L (137-145); Total Bilirubin 0.8 mg/dL (0.2-1.3); Total Protein 8.9 g/dL (6.3-8.2)
[2024-04-01 17:24] LABS: NT-Pro-B-Type Natriuretic Pept 1050 pg/mL
[2024-04-01] MEDS: ASPIRIN 81 MG PO STA (18:06)
--- NOTE | 2024-04-01 18:06 | XR ---
EXAMINATION TYPE: XR chest 2V DATE OF EXAM: 04/01/2024 5:04 PM COMPARISON: None. CLINICAL INDICATION: Male, 83 years old with history of Cough, TECHNIQUE: XR chest 2V view(s) obtained. FINDINGS: The heart size is normal. The pulmonary vasculature is normal. No suspicious focal consolidation is evident. IMPRESSION: 1. No acute pulmonary process. Follow up exams can be performed as clinically indicated [facility], Workstation: [facility], 04/01/2024 6:03 PM
[2024-04-01] MEDS ORDERED: ACETAMINOPHEN TAB 325 MG TAB PO PRN (18:52)
[2024-04-01] MEDS ORDERED: MORPHINE SULFATE 4 MG/ML SYRINGE IV PRN (18:52)
[2024-04-01] MEDS ORDERED: ONDANSETRON 4 MG/2 ML VIAL IVP PRN (18:52)
[2024-04-01] MEDS ORDERED: NALOXONE 0.4 MG/ML 1 ML VIAL IV PRN (18:52)
[2024-04-01 21:26] LABS: Glucose,Whole Blood 112 mg/dL (70-110)
[2024-04-02] MEDS: HYDROcodone/APAP 5-325MG 1 EACH TAB PO PRN (00:06)
[2024-04-02] MEDS ORDERED: MECLIZINE 12.5 MG TAB PO PRN (00:09)
[2024-04-02] MEDS ORDERED: BENZONATATE 100 MG CAP PO PRN (00:09)
[2024-04-02] MEDS ORDERED: NON FORMULARY DRUG (Tadalafil [Tadalafil] 20 MG Tablet) PO PRN (00:09)
[2024-04-02] MEDS ORDERED: ALBUTEROL NEBULIZED 2.5 MG/3 ML INHALATION PRN (00:09)
[2024-04-02 02:36] LABS: Appearance,Urine Clear (Clear); Bilirubin,Urine Negative (Negative); Blood,Urine Negative (Negative); Color,Urine Light Yellow; Glucose,Urine (UA) Negative (Negative); Ketones,Urine Negative (Negative); Leukocyte Esterase,Urine Negative (Negative); Mucus,Urine Rare /hpf; Nitrite,Urine Negative (Negative); PH, Urine 5.5 (5.0-8.0); Protein,Urine 1+ (Negative); RBC,Urine 1 /hpf (0-5); Specific Gravity,Urine 1.014 (1.001-1.035); Squamous Epithelial Cell,Urine <1 /hpf (0-4); Urobilinogen,Urine <2.0 mg/dL (<2.0); WBC,Urine 4 /hpf (0-5)
[2024-04-02 06:05] LABS: Glucose,Whole Blood 126 mg/dL (70-110)
[2024-04-02] MEDS: PANTOPRAZOLE 40 MG/10 ML VIAL IV SCH (09:28)
[2024-04-02] MEDS: NIFEdipine XL 30 MG TAB.ER.24 PO SCH (09:28)
[2024-04-02] MEDS: metFORMIN 500 MG TAB PO SCH (09:28)
[2024-04-02] MEDS: PANTOPRAZOLE 40 MG TABLET PO SCH (09:28)
[2024-04-02] MEDS: LINAGLIPTIN 5 MG TABLET PO SCH (09:28)
[2024-04-02] MEDS: ASPIRIN 81 MG PO SCH (09:44)
[2024-04-02] MEDS: ISOSORBIDE MONONITRATE ER 30 MG TAB.ER.24H PO SCH (09:53)
--- NOTE | 2024-04-02 10:42 | P.CRDCN ---
History of Present Illness History of present illness: HISTORY OF PRESENT ILLNESS: This is a 83-year-old male with a past medical history significant for coronary artery disease with previous stenting, hypertension, hyperlipidemia, diabetes, chronic occlusion of left ICA, and former nicotine dependence. Patient follows in the office with Dr. Moura. We have been asked to see the patient in consultation for elevated troponins. Patient examined at the bedside. Patient initially went to urgent care yesterday due to weakness, cough, and chills. Patient was directed to come to the emergency room for further evaluation. Patient was found to be positive for COVID-19. Troponins were drawn and were found to be elevated and patient was admitted to the hospital. The patient currently denies any chest pain or pressure. He denies any shortness of breath. Vital signs are stable. DIAGNOSTICS: - EKG reveals sinus mechanism with right bundle branch block. No signs of acute ischemia. - Chest xray negative for acute process - Laboratory data: WBC 5.9. Hemoglobin 13.4. Platelet count 189. Sodium 136. Potassium 4.4. BUN 26. Creatinine 1.41. proBNP 1050. Troponin 0.268. 0.250. 0.198. 0.178. - Current home cardiac medications include Procardia XL 30 mg daily. - Most recent echocardiogram obtained in June 2022 revealing ejection fraction 55%, mild to moderate AR, mild MR and mild TR - Cardiac catheterization history: December 2009 revealing critical proximal LAD stenosis with right dominant system and no other significant disease in RCA or circumflex. Patient underwent stenting of the proximal LAD. REVIEW OF SYSTEMS: At the time of my exam: CONSTITUTIONAL: Denies fever or chills. HEENT: Denies blurred vision, vision changes, or eye pain. Denies hemoptysis CARDIOVASCULAR: Denies chest pain. Denies orthopnea. Denies PND. Denies palpitations RESPIRATORY: Denies shortness of breath. GASTROINTESTINAL: Denies abdominal pain. Denies nausea or vomiting. HEMATOLOGIC: Denies bleeding disorders. GENITOURINARY: Denies any blood in urine. SKIN: Denies pruitis. Denies rash. PHYSICAL EXAM: VITAL SIGNS: Reviewed. GENERAL: Well-developed in no acute distress. HEENT: Head is normocephalic. Pupils are equal, round. Sclerae anicteric. Mucous membranes of the mouth are moist. Neck supple. No JVD or thyromegaly LUNGS: Respirations even and unlabored. Lungs essentially clear to auscultation bilaterally. HEART: Regular rate and rhythm. S1 and S2 heard. ABDOMEN: Soft. Nondistended. Nontender. EXTREMITIES: Normal range of motion. No clubbing or cyanosis. Peripheral pulses intact. No lower extremity edema NEUROLOGIC: Awake and alert. Oriented x 3. ASSESSMENT: Acute COVID-19 Elevated troponins, type II CT secondary to oxygen supply/demand mismatch Coronary artery disease with previous stenting of the LAD, 2009 Hypertension Hyperlipidemia Diabetes Chronic total occlusion of left ICA Former nicotine dependence PLAN: An acute coronary event has been ruled out Obtain 2D echo to assess cardiac structure and function Add aspirin 81 mg daily Add atorvastatin 40 mg at night Continue telemetry monitoring Patient may be discharged home today pending echo results Further recommendations pending patient course Nurse practitioner note has been reviewed by physician. Signing provider agrees with the documented findings, assessment, and plan of care documented by DIE STORAGE WORKER as a scribe. Past Medical History Past Medical History: Diabetes Mellitus History of Any Multi-Drug Resistant Organisms: None Reported Past Surgical History: Joint Replacement Past Anesthesia/Blood Transfusion Reactions: No Reported Reaction Smoking Status: Former smoker Past Alcohol Use History: None Reported Past Drug Use History: None Reported Medications and Allergies Home Medications Medication Instructions Recorded Confirmed Type Omeprazole [PriLOSEC] 20 mg PO DAILY 04/28/23 04/01/24 History metFORMIN HCL [Glucophage] 1,000 mg PO DAILY 04/28/23 04/01/24 History metFORMIN HCL [Glucophage] 500 mg PO W/SUPPER 04/28/23 04/01/24 History sitaGLIPtin [Januvia] 100 mg PO DAILY 04/28/23 04/01/24 History Albuterol Inhaler [Ventolin Hfa 2 puff INHALATION RT-Q4H PRN 04/01/24 04/01/24 H istory Inhaler] Benzonatate [Tessalon Perle] 200 mg PO DIRECTED PRN 04/01/24 04/01/24 History Meclizine [Antivert] 12.5 mg PO TID PRN 04/01/24 04/01/24 History NIFEdipine XL [Procardia Xl] 30 mg PO DAILY 04/01/24 04/01/24 History Nirmatrelvir/Ritonavir [Paxlovid 1 dose PO DIRECTED 04/01/24 04/01/24 History 150-100 mg Dose Pack] tadalafiL 20 mg PO DAILY PRN 04/01/24 04/01/24 History Allergies Allergy/AdvReac Type Severity Reaction Status Date / Time No Known Allergies Allergy Verified 04/01/24 19:14 Physical Exam Vitals: Vital Signs Temp Pulse Pulse Resp BP BP BP 04/02/24 07:50 98.6 F 68 16 136/80 04/02/24 04:00 98.5 F 89 14 119/65 04/02/24 00:00 98.8 F 61 16 151/82 04/01/24 21:30 98.1 F 58 L 16 142/74 04/01/24 21:08 99.0 F 56 L 16 135/97 04/01/24 19:25 99.2 F 57 L 18 131/82 04/01/24 17:35 99.2 F 70 19 134/76 04/01/24 15:42 99.5 F 75 18 105/58 Pulse Ox 04/02/24 07:50 99 04/02/24 04:00 96 04/02/24 00:00 97 04/01/24 21:30 98 04/01/24 21:08 97 04/01/24 19:25 96 04/01/24 17:35 98 04/01/24 15:42 96 Intake and Output 04/01/24 04/02/24 04/02/24 22:59 06:59 14:59 Intake Total 10 Output Total 900 Balance -890 Intake: IV 10 Invasive Line 1 10 Output: Urine 900 Other: Voiding Method Self-Catheterization Weight 65.771 kg 69 kg Results 04/01/24 16:22 04/01/24 16:22 Cardiac Enzymes 04/01/24 04/01/24 04/01/24 Range/Units 16:22 16:22 19:25 AST 27 (17-59) U/L Troponin I 0.268 H* 0.250 H* (0.000-0.034) ng/mL 04/01/24 04/02/24 Range/Units 23:22 04:01 AST (17-59) U/L Troponin I 0.198 H* 0.178 H* (0.000-0.034) ng/mL CBC 04/01/24 Range/Units 16:22 WBC 5.9 (3.8-10.6) k/uL RBC 4.55 (4.30-5.90) m/uL Hgb 13.4 (13.0-17.5) gm/dL Hct 41.5 (39.0-53.0) % Plt Count 189 (150-450) k/uL Comprehensive Metabolic Panel 04/01/24 Range/Units 16:22 Sodium 136 L (137-145) mmol/L Potassium 4.4 (3.5-5.1) mmol/L Chloride 98 (98-107) mmol/L Carbon Dioxide 25 (22-30) mmol/L BUN 26 H (9-20) mg/dL Creatinine 1.41 H (0.66-1.25) mg/dL Glucose 120 H (74-99) mg/dL Calcium 9.5 (8.4-10.2) mg/dL AST 27 (17-59) U/L ALT 19 (4-49) U/L Alkaline Phosphatase 61 (38-126) U/L Total Protein 8.9 H (6.3-8.2) g/dL Albumin 4.5 (3.5-5.0) g/dL Current Medications Generic Name Dose Route Start Last Admin Trade Name Freq PRN Reason Stop Dose Admin Acetaminophen 650 mg 04/01/24 18:52 Acetaminophen Tab 325 Mg Tab PO Q6HR PRN Mild Pain or Fever > 100.5 Hydrocodone Bitart/Acetaminophen 1 each 04/01/24 18:52 04/02/24 00:06 Hydrocodone/Apap 5-325mg 1 Each Tab PO 1 each Q4HR PRN Administration Moderate Pain (Scale 4 to 6) Albuterol Sulfate 2.5 mg 04/02/24 00:09 Albuterol Nebulized 2.5 Mg/3 Ml INHALATION RT-Q4H PRN Shortness Of Breath Benzonatate 200 mg 04/02/24 00:09 Benzonatate 100 Mg Cap PO TID PRN Cough Linagliptin 5 mg 04/02/24 09:00 Linagliptin 5 Mg Tablet PO DAILY KRISTINE Meclizine HCl 12.5 mg 04/02/24 00:09 Meclizine 12.5 Mg Tab PO TID PRN Vertigo Metformin HCl 500 mg 04/02/24 17:30 Metformin 500 Mg Tab PO W/SUPPER KRISTINE Metformin HCl 1,000 mg 04/02/24 07:30 Metformin 500 Mg Tab PO W/[facility] Morphine Sulfate 4 mg 04/01/24 18:52 Morphine Sulfate 4 Mg/Ml Syringe IV Q4HR PRN Severe Pain (Scale 7 to 10) Naloxone HCl 0.2 mg 04/01/24 18:52 Naloxone 0.4 Mg/Ml 1 Ml Vial IV Q2M PRN Opioid Reversal Nifedipine 30 mg 04/02/24 09:00 Nifedipine Xl 30 Mg Tab.Er.24 PO DAILY [facility] Ondansetron HCl 4 mg 04/01/24 18:52 Ondansetron 4 Mg/2 Ml Vial IVP Q8HR PRN Nausea And Vomiting Pantoprazole Sodium 40 mg 04/02/24 09:00 Pantoprazole 40 Mg/10 Ml Vial IV DAILY [facility] Pantoprazole Sodium 40 mg 04/02/24 07:30 Pantoprazole 40 Mg Tablet PO DAILY@0730 [facility] Intake and Output 04/01/24 04/02/24 04/02/24 22:59 06:59 14:59 Intake Total 10 Output Total 900 Balance -890 Intake: IV 10 Invasive Line 1 10 Output: Urine 900 Other: Voiding Method Self-Catheterization Weight 65.771 kg 69 kg 04/01/24 16:22 04/01/24 16:22
--- NOTE | 2024-04-02 11:19 | CA ---
Transthoracic Echo Report Name: Pratik Don Age: 83 Gender: M : 1940 Exam Date: 04/02/2024 09:52 Exam Location: [place] [facility] Ht (in): 67 Wt (lb): 145 Ordering Physician: Luisana Tony Attending/Referring Phys: [id number], Chavo Burning Machine Operator Leydi Dorman RDCS Procedure CPT: Indications: Elevated troponins, LV function, positive COVID Cardiac Hx: Technical Quality: Good Contrast 1: Total Dose (mL): Contrast 2: Total Dose (mL): MEASUREMENTS (Male / Female) Normal Values 2D ECHO LV Diastolic Diameter PLAX 4.0 cm 4.2 - 5.9 / 3.9 - 5.3 cm LV Systolic Diameter PLAX 2.1 cm IVS Diastolic Thickness 1.4 cm 0.6 - 1.0 / 0.6 - 0.9 cm LVPW Diastolic Thickness 1.6 cm 0.6 - 1.0 / 0.6 - 0.9 cm LV Relative Wall Thickness 0.7 RV Internal Dim ED PLAX 1.5 cm LA Systolic Diameter LX 4.7 cm 3.0 - 4.0 / 2.7 - 3.8 cm LA Volume 68.7 cm??? 18 - 58 / 22 - 52 cm??? LA Volume Index 38.9 cm???/m??? 16 - 28 cm???/m??? M-MODE Aortic Root Diameter MM 3.6 cm LA Systolic Diameter MM 4.3 cm LA Ao Ratio MM 1.2 AV Cusp Separation MM 2.3 cm DOPPLER AV Peak Velocity 186.7 cm/s AV Peak Gradient 13.9 mmHg AI Peak Velocity 424.0 cm/s AI Peak Gradient 71.9 mmHg AI Pressure Half Time 686.2 ms MV Area PHT 2.2 cm??? Mitral E Point Velocity 54.7 cm/s Mitral A Point Velocity 108.0 cm/s Mitral E to A Ratio 0.5 MV Deceleration Time 340.1 ms TR Peak Velocity 245.6 cm/s TR Peak Gradient 24.1 mmHg Right Ventricular Systolic Press 28.1 mmHg FINDINGS Left Ventricle Left ventricular ejection fraction is estimated at 60-65 %. Moderately increased septal wall thickness.Normal left ventricular systolic function with no obvious regional wall motion abnormalities. Left ventricular cavity size normal. Right Ventricle Normal right ventricular size and function. Right ventricular systolic pressure within normal limits. Right Atrium Normal right atrial size. Left Atrium Mildly increased left atrial diameter. Mildly increased left atrial volume. Mitral Valve Structurally normal mitral valve. Trace mitral regurgitation. No mitral stenosis. Aortic Valve Trileaflet aortic valve. Moderate aortic regurgitation. No aortic stenosis. Tricuspid Valve Structurally normal tricuspid valve. Mild tricuspid regurgitation. No tricuspid stenosis. Pulmonic Valve Structurally normal pulmonic valve. Trace pulmonic regurgitation. No pulmonic stenosis. Pericardium No pericardial or pleural effusion. Aorta Aorta at upper limits of normal. CONCLUSIONS normal ef moderate ar Previewed by: Dr. Ajit Ugarte MD (Electronically Signed) Final Date: 02 April 2024 11:18
[2024-04-02 11:25] LABS: Glucose,Whole Blood 164 mg/dL (70-110)
[2024-04-02 12:13] VITALS: BP 125/77; PULSE 85; RESP 18; TEMP 98.5
--- NOTE | 2024-04-02 12:51 | P.HPIM ---
History of Present Illness H&P Date: 04/02/24 History of present illness; patient is a 83-year-old gentleman with past medical history significant for coronary artery disease with previous stenting, hypertension, hyperlipidemia, diabetes, chronic occlusion of left ICA, and former nicotine dependence who presented the ER because of cough and generalized weakness. Patient stated he was all right 4 days back when he started noticing that he was having cough. Cough is nonproductive. There was no complaint of fever but patient was complaining of chills. Patient also with generalized weakness. There was no complaint of chest pain. Patient denies any shortness of breath. There was no complaint orthopnea or PND. Because of generalized w eakness, patient presented to the urgent care from where he was told to come to the ER Initial lab work done in the ER showed WBC 5.9, hemoglobin 13.4, platelet count 189, sodium 136, potassium 4.4, BUN 26, creatinine 1.41, glucose 120, lactate 1.6, AST 27, ALT 19, troponin 0.268 UA negative for infection Influenza A not detected Influenza B not detected RSV not detected COVID-19 detected EKG done in the ER showed heart rate of 67, no ST segment elevation or depression seen, no T-wave inversions seen. Chest x-ray done in the ER showed no acute cardiopulmonary process Patient admitted to internal medicine service REVIEW OF SYSTEMS: CONSTITUTIONAL: No fever, no malaise, no fatigue. HEENT: No recent visual problems or hearing problems. Denied any sore throat. CARDIOVASCULAR: As mentioned above PULMONARY: As mentioned above GASTROINTESTINAL: No diarrhea, no nausea, no vomiting, no abdominal pain. NEUROLOGICAL: No headaches, no weakness, no numbness. HEMATOLOGICAL: Denies any bleeding or petechiae. GENITOURINARY: Denies any burning micturition, frequency, or urgency. MUSCULOSKELETAL/RHEUMATOLOGICAL: Denies any joint pain, swelling, or any muscle pain. ENDOCRINE: Denies any polyuria or polydipsia. The rest of the 14-point review of systems is negative. PHYSICAL EXAMINATION: GENERAL: The patient is alert and oriented x3, not in any acute distress. Well developed, well nourished. HEENT: Pupils are round and equally reacting to light. EOMI. No scleral icterus. No conjunctival pallor. Normocephalic, atraumatic. No pharyngeal erythema. No thyromegaly. CARDIOVASCULAR: S1 and S2 present. No murmurs, rubs, or gallops. PULMONARY: Chest is clear to auscultation, no wheezing or crackles. ABDOMEN: Soft, nontender, nondistended, normoactive bowel sounds. No palpable organomegaly. MUSCULOSKELETAL: No joint swelling or deformity. EXTREMITIES: No cyanosis, clubbing, or pedal edema. NEUROLOGICAL: Gross neurological examination did not reveal any focal deficits. SKIN: No rashes. Assessment and plan COVID-19 infection Elevated troponin Coronary artery disease with previous stenting of the LAD, 2009 Hypertension Hyperlipidemia Diabetes Chronic total occlusion of left ICA Former nicotine dependence Monitor vital signs Monitor CBC Monitor CMP Continue telemetry monitoring Trend troponin Ordered COVID-19 isolation Start Paxlovid Resume aspirin, Lipitor Resume Imdur Ordered cardiology consult Labs and medication were reviewed.. Continue same treatment. Continue with symptomatic treatment. Resume home medication. Monitor labs and vitals. DVT and GI prophylaxis. Further recommendations as per clinical course of the patient Dictation was produced using [employer] dictation software. please excuse any grammatical, word or spelling errors. Past Medical History Past Medical History: Diabetes Mellitus History of Any Multi-Drug Resistant Organisms: None Reported Past Surgical History: Joint Replacement Past Anesthesia/Blood Transfusion Reactions: No Reported Reaction Smoking Status: Former smoker Past Alcohol Use History: None Reported Past Drug Use History: None Reported Medications and Allergies Home Medications Medication Instructions Recorded Confirmed Type Omeprazole [PriLOSEC] 20 mg PO DAILY 04/28/23 04/01/24 History metFORMIN HCL [Glucophage] 1,000 mg PO DAILY 04/28/23 04/01/24 History metFORMIN HCL [Glucophage] 500 mg PO W/SUPPER 04/28/23 04/01/24 History sitaGLIPtin [Januvia] 100 mg PO DAILY 04/28/23 04/01/24 History Albuterol Inhaler [Ventolin Hfa 2 puff INHALATION RT-Q4H PRN 04/01/24 04/01/24 History Inhaler] Benzonatate [Tessalon Perle] 200 mg PO DIRECTED PRN 04/01/24 04/01/24 History Meclizine [Antivert] 12.5 mg PO TID PRN 04/01/24 04/01/24 History NIFEdipine XL [Procardia Xl] 30 mg PO DAILY 04/01/24 04/01/24 History Nirmatrelvir/Ritonavir [Paxlovid 1 dose PO DIRECTED 04/01/24 04/01/24 History 150-100 mg Dose Pack] tadalafiL 20 mg PO DAILY PRN 04/01/24 04/01/24 History Allergies Allergy/AdvReac Type Severity Reaction Status Date / Time No Known Allergies Allergy Verified 04/01/24 19:14 Physical Exam Vitals: Vital Signs Temp Pulse Pulse Resp BP BP BP 04/02/24 07:50 98.6 F 68 16 136/80 04/02/24 04:00 98.5 F 89 14 119/65 04/02/24 00:00 98.8 F 61 16 151/82 04/01/24 21:30 98.1 F 58 L 16 142/74 04/01/24 21:08 99.0 F 56 L 16 135/97 04/01/24 19:25 99.2 F 57 L 18 131/82 04/01/24 17:35 99.2 F 70 19 134/76 04/01/24 15:42 99.5 F 75 18 105/58 Pulse Ox 04/02/24 07:50 99 04/02/24 04:00 96 04/02/24 00:00 97 04/01/24 21:30 98 04/01/24 21:08 97 04/01/24 19:25 96 04/01/24 17:35 98 04/01/24 15:42 96 Intake and Output 04/01/24 04/02/24 04/02/24 22:59 06:59 14:59 Intake Total 10 10 Output Total 900 Balance -890 10 Intake: IV 10 10 Invasive Line 1 10 10 Output: Urine 900 Other: Voiding Method Self-Catheterization Self-Catheterization # Voids 2 # Bowel Movements 2 Weight 65.771 kg 69 kg Results CBC & Chem 7: 04/01/24 16:22 04/01/24 16:22 Labs: Abnormal Lab Results - Last 24 Hours (Table) 04/01/24 04/01/24 04/01/24 Range/Units 16:15 16:22 16:22 Sodium 136 L (137-145) mmol/L BUN 26 H (9-20) mg/dL Creatinine 1.41 H (0.66-1.25) mg/dL Glucose 120 H (74-99) mg/dL POC Glucose (mg/dL) (70-110) mg/dL Troponin I 0.268 H* (0.000-0.034) ng/mL Total Protein 8.9 H (6.3-8.2) g/dL Urine Protein (Negative) Urine Mucus (None) /hpf SARS-CoV-2 (PCR) Detected A (Not Detectd) 04/01/24 04/01/24 04/01/24 Range/Units 19:25 21:25 23:22 Sodium (137-145) mmol/L BUN (9-20) mg/dL Creatinine (0.66-1.25) mg/dL Glucose (74-99) mg/dL POC Glucose (mg/dL) 112 H (70-110) mg/dL Troponin I 0.250 H* 0.198 H* (0.000-0.034) ng/mL Total Protein (6.3-8.2) g/dL Urine Protein (Negative) Urine Mucus (None) /hpf SARS-CoV-2 (PCR) (Not Detectd) 04/02/24 04/02/24 04/02/24 Range/Units 02:20 04:01 06:03 Sodium (137-145) mmol/L BUN (9-20) mg/dL Creatinine (0.66-1.25) mg/dL Glucose (74-99) mg/dL POC Glucose (mg/dL) 126 H (70-110) mg/dL Troponin I 0.178 H* (0.000-0.034) ng/mL Total Protein (6.3-8.2) g/dL Urine Protein 1+ H (Negative) Urine Mucus Rare H (None) /hpf SARS-CoV-2 (PCR) (Not Detectd) Thrombosis Risk Factor Assmnt - Choose All That Apply Any of the Below Risk Factors Present?: No Other Risk Factors: Yes Each Risk Factor Represents 3 Points: Age 75 years or older Other congenital or acquired thrombophilia - If yes, enter type in comment: No Thrombosis Risk Factor Assessment Total Risk Factor Score: 3 Thrombosis Risk Factor Assessment Level: Moderate Risk
[2024-04-02] MEDS ORDERED: metFORMIN 500 MG TAB PO SCH (17:30)
[2024-04-02] MEDS ORDERED: ATORVASTATIN 40 MG TAB PO SCH (21:00)
--- NOTE | 2024-04-03 14:22 | P.CONS ---
History of Present Illness - Reason for Consult Consult date: 04/02/24 COVID-19 Requesting physician: Luis oRsa - Chief Complaint Weakness and cough x 4 days - History of Present Illness Patient is a 83-year-old male with a past medical history significant for diabetes mellitus osteoarthritis presenting to the hospital for evaluation of increased weakness and cough symptom has been going on for about 4 days patient main symptom is to be increased weakness and unable to get up and around patient did have some chills but did not recall taking any temperature he did have a cough which is mild in ntensity and mostly dry in nature patient not being up any sputum patient denies having any significant URI symptoms no nausea vomiting abdominal pain or any diarrhea with the symptoms the patient has been evaluated on presentation the hospital he did have low-grade fever of 99.5 F that has subsequently normalized patient was not tachycardic hypotensive or hypoxic and no need for supplemental oxygen patient did have a white count of 5.9 no lymphopenia BUN 30 slightly elevated troponin was elevated liver isms are normal UA negative tested positive for COVID-19 chest x-ray no acute cardiopulmonary process patient has been referred to hospital infectious disease was consulted today regarding COVID-19 patient has been evaluated by cardiology and pulmonary has been cleared for discharge and patient wants to go home Review of Systems Positive point and negatives has been mentioned in the HPI, complete review of systems was performed and all other systems are negative Past Medical History Past Medical History: Diabetes Mellitus History of Any Multi-Drug Resistant Organisms: None Reported Past Surgical History: Joint Replacement Past Anesthesia/Blood Transfusion Reactions: No Reported Reaction Smoking Status: Former smoker Past Alcohol Use History: None Reported Past Drug Use History: None Reported Medications and Allergies Home Medications Medication Instructions Recorded Confirmed Type Omeprazole [PriLOSEC] 20 mg PO DAILY 04/28/23 04/01/24 History metFORMIN HCL [Glucophage] 1,000 mg PO DAILY 04/28/23 04/01/24 History metFORMIN HCL [Glucophage] 500 mg PO W/SUPPER 04/28/23 04/01/24 History sitaGLIPtin [Januvia] 100 mg PO DAILY 04/28/23 04/01/24 History Albuterol Inhaler [Ventolin Hfa 2 puff INHALATION RT-Q4H PRN 04/01/24 04/01/24 History Inhaler] Benzonatate [Tessalon Perle] 200 mg PO DIRECTED PRN 04/01/24 04/01/24 History Meclizine [Antivert] 12.5 mg PO TID PRN 04/01/24 04/01/24 History NIFEdipine XL [Procardia XL] 30 mg PO DAILY 04/01/24 04/01/24 History Nirmatrelvir/Ritonavir [Paxlovid 1 dose PO DIRECTED 04/01/24 04/01/24 History 150-100 mg Dose Pack] Aspirin 81 mg PO DAILY 30 Days #30 tab 04/02/24 Rx Atorvastatin [Lipitor] 40 mg PO HS 30 Days #30 tab 04/02/24 Rx Isosorbide Mononitrate ER [Imdur] 30 mg PO DAILY 30 Days #30 tab 04/02/24 Rx Allergies Allergy/AdvReac Type Severity Reaction Status Date / Time No Known Allergies Allergy Verified 04/01/24 19:14 Physical Exam Vitals: Vital Signs Temp Pulse Pulse Resp BP BP BP 04/02/24 12:07 98.5 F 85 18 125/77 04/02/24 07:50 98.6 F 68 16 136/80 04/02/24 04:00 98.5 F 89 14 119/65 04/02/24 00:00 98.8 F 61 16 151/82 04/01/24 21:30 98.1 F 58 L 16 142/74 04/01/24 21:08 99.0 F 56 L 16 135/97 04/01/24 19:25 99.2 F 57 L 18 131/82 04/01/24 17:35 99.2 F 70 19 134/76 04/01/24 15:42 99.5 F 75 18 105/58 Pulse Ox 04/02/24 12:07 96 04/02/24 07:50 99 04/02/24 04:00 96 04/02/24 00:00 97 04/01/24 21:30 98 04/01/24 21:08 97 04/01/24 19:25 96 04/01/24 17:35 98 04/01/24 15:42 96 Intake and Output 04/01/24 04/02/24 04/02/24 22:59 06:59 14:59 Intake Total 10 10 Output Total 900 Balance -890 10 Intake: IV 10 10 Invasive Line 1 10 10 Output: Urine 900 Other: Voiding Method Self-Catheterization Self-Catheterization # Voids 2 # Bowel Movements 2 Weight 65.771 kg 69 kg GENERAL DESCRIPTION: Elderly male lying in bed, no distress. No tachypnea or accessory muscle of respiration use. HEENT: Shows Pallor , no scleral icterus. Oral mucous membrane is dry. NECK: Trachea central, no thyromegaly. LUNGS: Unlabored breathing. Clear to auscultation anteriorly. No wheeze or crackle. HEART: S1, S2, regular rate and rhythm. No loud murmur ABDOMEN: Soft, no tenderness , guarding or rigidity, no organomegaly EXTREMITIES: No edema of feet. SKIN: No rash, no masses palpable. NEUROLOGICAL: The patient is awake, alert, oriented x3, mood and affect normal. Results CBC & Chem 7: 04/01/24 16:22 04/01/24 16:22 Labs: Abnormal Lab Results - Last 24 Hours (Table) 04/01/24 04/01/24 04/01/24 Range/Units 16:15 16:22 16:22 Sodium 136 L (137-145) mmol/L BUN 26 H (9-20) mg/dL Creatinine 1.41 H (0.66-1.25) mg/dL Glucose 120 H (74-99) mg/dL POC Glucose (mg/dL) (70-110) mg/dL Troponin I 0.268 H* (0.000-0.034) ng/mL Total Protein 8.9 H (6.3-8.2) g/dL Urine Protein (Negative) Urine Mucus (None) /hpf SARS-CoV-2 (PCR) Detected A (Not Detectd) 04/01/24 04/01/24 04/01/24 Range/Units 19:25 21:25 23:22 Sodium (137-145) mmol/L BUN (9-20) mg/dL Creatinine (0.66-1.25) mg/dL Glucose (74-99) mg/dL POC Glucose (mg/dL) 112 H (70-110) mg/dL Troponin I 0.250 H* 0.198 H* (0.000-0.034) ng/mL Total Protein (6.3-8.2) g/dL Urine Protein (Negative) Urine Mucus (None) /hpf SARS-CoV-2 (PCR) (Not Detectd) 04/02/24 04/02/24 04/02/24 Range/Units 02:20 04:01 06:03 Sodium (137-145) mmol/L BUN (9-20) mg/dL Creatinine (0.66-1.25) mg/dL Glucose (74-99) mg/dL POC Glucose (mg/dL) 126 H (70-110) mg/dL Troponin I 0.178 H* (0.000-0.034) ng/mL Total Protein (6.3-8.2) g/dL Urine Protein 1+ H (Negative) Urine Mucus Rare H (None) /hpf SARS-CoV-2 (PCR) (Not Detectd) 04/02/24 Range/Units 11:23 Sodium (137-145) mmol/L BUN (9-20) mg/dL Creatinine (0.66-1.25) mg/dL Glucose (74-99) mg/dL POC Glucose (mg/dL) 164 H (70-110) mg/dL Troponin I (0.000-0.034) ng/mL Total Protein (6.3-8.2) g/dL Urine Protein (Negative) Urine Mucus (None) /hpf SARS-CoV-2 (PCR) (Not Detectd) Assessment and Plan (1) COVID-19 Status: Acute Code(s): U07.1 - COVID-19 SNOMED Code(s): 236199626 Plan: 1patient presented to hospital with generalized weakness no energy he also have a cough mild in intensity patient has been diagnosed with acute COVID-19 however the patient is not hypoxic and no evidence of acute infiltrate on the chest x-ray. Will be mostly supportive and does not qualify for remdesivir or steroids at this point 2patient has been cleared for discharge by cardiology and the patient wants to go home we will suggest Paxlovid on discharge this was discussed with the admitting physician working on discharge Question concern answered Thank you for this consultation Dictation was produced using [employer] dictation software. please excuse any grammatical, word or spelling errors. Time with Patient: Greater than 30
== END 2024-04-02 13:53 | disposition home or self-care (01) | DRG 177 ==
LOC: EC 15:05 → 3SCARD 19:52
PROVIDERS: ADMIT Hospitalist; ATTEND Hospitalist
DX: U07.1 COVID-19 (principal); I21.A1 Myocardial infarction type 2; E11.9 Type 2 diabetes mellitus without complications; I10 Essential (primary) hypertension; I65.22 Occlusion and stenosis of left carotid artery; E78.5 Hyperlipidemia, unspecified; I25.10 Atherosclerotic heart disease of native coronary artery without angina pectoris; M19.90 Unspecified osteoarthritis, unspecified site; I45.10 Unspecified right bundle-branch block; Z79.82 Long term (current) use of aspirin; Z79.84 Long term (current) use of oral hypoglycemic drugs; Z79.899 Other long term (current) drug therapy; Z87.891 Personal history of nicotine dependence; Z95.5 Presence of coronary angioplasty implant and graft
CPT/HCPCS: 36415; 71046; 80053; 81001; 83605; 83880; 84484; 85025; 87636; 93005; 93306; 96360; 99285

== ENCOUNTER → 2024-07-25 | Outpatient (CLI) | payer MEDICARE ==
[2024-07-25 16:54] LABS: HGB 13.6 g/dL (13.0-17.0); MCH 29.8 pg (27.0-32.0); MCHC 32.4 g/dL (32.0-37.0); MCV 92.1 FL (80.0-97.0); Mean Platelet Volume 10.7 FL (9.5-12.2); NRBC Per 100 WBC 0 X 10*3/uL (0.00-0.01); Platelet Count 250 X 10*3/uL (140-440); RBC 4.56 X 10*6/uL (4.40-5.60); RDW 14.3 % (11.5-14.5); WBC 6.69 X 10*3/uL (4.50-10.00)
[2024-07-25 17:11] LABS: ALT 22 U/L (10-49); AST 24 U/L (14-35); Albumin 4.5 g/dL (3.8-4.9); Albumin/Globulin Ratio 1.12 Ratio (1.60-3.17); Alkaline Phosphatase 69 U/L (41-126); BUN/Creat Ratio 21.38 Ratio (12.00-20.00); Blood Urea Nitrogen 27.8 mg/dL (9.0-27.0); Calcium 9.8 mg/dL (8.7-10.3); Carbon Dioxide 25.1 mmol/L (21.6-31.8); Chloride 102 mmol/L (96-109); Chol/HDL Ratio 3.51 Ratio; Glucose 143 mg/dL (70-110); LDL Cholesterol,Calculated 125.9 mg/dL (0.0-131.0); Potassium 5.1 mmol/L (3.5-5.5); Sodium 137 mmol/L (135-145); Total Bilirubin 0.4 mg/dL (0.3-1.2); Total Protein 8.5 g/dL (6.2-8.2); VLDL Calculation 13.58 mg/dL (5.00-40.00)
== END | disposition home or self-care (01) ==
LOC: LABWHC1 12:17
PROVIDERS: ATTEND Family Medicine
DX: I10 Essential (primary) hypertension (principal); E11.9 Type 2 diabetes mellitus without complications; E78.5 Hyperlipidemia, unspecified; E55.9 Vitamin D deficiency, unspecified
CPT/HCPCS: 36415; 80053; 80061; 82306; 83036; 84443; 85027

== ENCOUNTER → 2024-09-06 | Outpatient (CLI) | payer MEDICARE ==
[2024-09-06 17:00] LABS: INR 0.9 (<1.2); Partial Thromboplastin Time 23.3 sec (22.0-30.0); Prothrombin Time 10.6 sec (10.0-12.5)
[2024-09-07 01:56] LABS: Basophils # (A) 0.02 X 10*3/uL (0.00-0.10); Basophils % (A) 0.2 %; Eosinophils # (A) 0.11 X 10*3/uL (0.04-0.35); Eosinophils % (A) 1.3 %; HCT 38.8 % (39.6-50.0); HGB 12.6 g/dL (13.0-17.0); Immature Grans, Automated 0.40 %; Lymphocytes # (A) 1.93 X 10*3/uL (0.90-5.00); Lymphocytes % (A) 23.2 %; MCH 30.0 pg (27.0-32.0); MCHC 32.5 g/dL (32.0-37.0); MCV 92.4 FL (80.0-97.0); Monocytes # (A) 0.76 X 10*3/uL (0.20-1.00); Monocytes % (A) 9.1 %; NRBC Per 100 WBC 0 X 10*3/uL (0.00-0.01); Neutrophils # (A) 5.47 X 10*3/uL (1.80-7.70); Neutrophils % (A) 65.8 %; Platelet Count 250 X 10*3/uL (140-440); RBC 4.20 X 10*6/uL (4.40-5.60); RDW 14.1 % (11.5-14.5); WBC 8.32 X 10*3/uL (4.50-10.00)
[2024-09-07 03:02] LABS: ALT 25 U/L (10-49); AST 26 U/L (14-35); Albumin 4.4 g/dL (3.8-4.9); Albumin/Globulin Ratio 1.10 Ratio (1.60-3.17); Alkaline Phosphatase 62 U/L (41-126); Anion Gap 12.20 mmol/L (4.00-12.00); BUN/Creat Ratio 20.17 Ratio (12.00-20.00); Blood Urea Nitrogen 24.2 mg/dL (9.0-27.0); Calcium 9.6 mg/dL (8.7-10.3); Carbon Dioxide 23.8 mmol/L (21.6-31.8); Chloride 104 mmol/L (96-109); Globulin 4.0 g/dL (1.6-3.3); Glucose 117 mg/dL (70-110); Potassium 4.5 mmol/L (3.5-5.5); Sodium 140 mmol/L (135-145); Total Protein 8.4 g/dL (6.2-8.2)
== END | disposition home or self-care (01) ==
LOC: LABPAT 15:51
PROVIDERS: ATTEND Family Medicine
DX: Z01.812 Encounter for preprocedural laboratory examination (principal)
CPT/HCPCS: 80053; 82306; 83036; 85025; 85610; 85730

== ENCOUNTER 2024-10-03 05:31 | Day surgery (SDC) | payer MEDICARE ==
[2024-09-29 16:12] VITALS: BMI 23.0
[~2024-10-03 05:31] MED LIST changes: -HYDROmorphone 0.5 MG/0.5 ML SYRINGE IVP PRN; +TRANEXAMIC 1,000 MG/100ML-NACL 1,000 MG in SALINE 1 100ML.BAG IVPB PRN
[2024-10-03] MEDS ORDERED: HYDROmorphone 0.5 MG/0.5 ML SYRINGE IVP PRN ×4 (05:44→07:04)
[2024-10-03] MEDS: IV FLUID CONTINUATION 1,000 ML IV ONE ×2 (05:48→09:32)
[2024-10-03 06:13] LABS: Glucose,Whole Blood 144 mg/dL (70-110)
[2024-10-03] MEDS: GABAPENTIN 300 MG CAP PO PRN (06:21)
[2024-10-03] MEDS: ACETAMINOPHEN TAB 500 MG TAB PO PRN (06:21)
[2024-10-03] MEDS: LACTATED RINGERS 1,000 ML IV SCH (06:21)
[2024-10-03] MEDS: MELOXICAM 7.5 MG TAB PO PRN (06:21)
[2024-10-03] MEDS: ONDANSETRON 4 MG/2 ML VIAL IVP STA (06:38)
[2024-10-03] MEDS: MIDAZOLAM 2 MG/2 ML VIAL IV STA (06:41)
[2024-10-03] MEDS: fentaNYL (PF) 50 MCG/ML 2 ML AMP IVP STA (06:41)
[2024-10-03] MEDS ORDERED: PROPOFOL 10 MG/ML 20 ML VIAL IV ONE (07:01)
[2024-10-03] MEDS ORDERED: LIDOCAINE 1% INJ 10MG/ML (20 ML MDV) ONE (07:01)
[2024-10-03] MEDS ORDERED: SUCCINYLCHOLINE CHLORIDE 200 MG/10 ML VIAL IV ONE (07:01)
[2024-10-03] MEDS ORDERED: PHENYLEPHRINE-0.9% NACL SYG 1,000 MCG/10 ML SYRINGE ONE (07:01)
[2024-10-03] MEDS ORDERED: ROCURONIUM 10 MG/ML (5 ML VIAL) IV ONE (07:01)
[2024-10-03] MEDS ORDERED: fentaNYL (PF) 50 MCG/ML 2 ML AMP ONE (07:01)
[2024-10-03] MEDS ORDERED: GLYCOPYRROLATE 0.2 MG/ML 2 ML VIAL ONE (07:01)
[2024-10-03] MEDS ORDERED: NEOSTIGMINE 1 MG/ML 10 ML VIAL ONE (07:01)
[2024-10-03] MEDS ORDERED: ROPIVACAINE 5 MG/ML 30 ML VIAL ONE (07:01)
[2024-10-03] MEDS ORDERED: DEXAMETHASONE SOD PHOSPHATE 4 MG/ML 1 ML VIAL ONE (07:01)
[2024-10-03] MEDS ORDERED: SODIUM CHLORIDE 0.9% (PF) 10 ML VIAL ONE (07:01)
[2024-10-03] MEDS ORDERED: TRANEXAMIC 1,000 MG/100ML-NACL PREMIX BAG ONE (07:01)
[2024-10-03] MEDS ORDERED: NA PHOS,M-B/NA PHOS,DI-BA 133 ML ENEMA RECTAL PRN (07:04)
[2024-10-03] MEDS ORDERED: NALOXONE 0.4 MG/ML 1 ML VIAL IV PRN (07:04)
[2024-10-03] MEDS ORDERED: ONDANSETRON 4 MG/2 ML VIAL IVP PRN (07:04)
[2024-10-03] MEDS ORDERED: MAGNESIUM HYDROXIDE 2,400 MG/30 ML CUP PO PRN (07:04)
[2024-10-03] MEDS ORDERED: HYDROcodone/APAP 7.5-325MG 1 EACH TAB PO PRN ×2 (07:06)
[2024-10-03] MEDS ORDERED: SODIUM CHLORIDE 0.9% 1,000 ML IV SCH (07:15)
[2024-10-03] MEDS: ceFAZolin 1,000 MG in SODIUM CHLORIDE 0.9% 1,000 ML IRRIGATION ONE (07:25)
--- NOTE | 2024-10-03 07:52 | P.ANPRN ---
Procedure Note - Anesthesia - Nerve Block Performed Right Adductor Canal Infusion Time Out Performed: Yes Date of Procedure: 10/03/24 Procedure Start Time: 06:41 Procedure Stop Time: 06:47 Location of Patient: PreOp Indication: Acute Post-Operative Pain, Requested by Surgeon Sedation Type: Sedate with meaningful contact maintained Preparation: Sterile Prep, Sterile Dressing Position: Supine Needle Types: Pajunk Needle Gauge: 18 Ultrasound used to visualize needle placement: Yes Ultrasound used to observe medication spread: Yes Injectate: 0.5% Ropivacaine (see comment for volume) (20 mL +10 mL of normal saline +4 mg dexamethasone) Blood Aspirated: No Pain Paresthesia on Injection Noted: No Resistance on Injection: Normal Image Stored and Saved: Yes Events: Uneventful and Well Tolerated
--- NOTE | 2024-10-03 07:53 | P.ANPRN ---
Procedure Note - Anesthesia - Nerve Block Performed Right [place] Single Time Out Performed: Yes Date of Procedure: 10/03/24 Procedure Start Time: 06:48 Procedure Stop Time: 06:54 Location of Patient: PreOp Indication: Acute Post-Operative Pain, Requested by Surgeon Sedation Type: Sedate with meaningful contact maintained Preparation: Sterile Prep Position: Left Lateral Needle Types: Pajunk Needle Gauge: 21 Ultrasound used to visualize needle placement: Yes Ultrasound used to observe medication spread: Yes Injectate: 0.5% Ropivacaine (see comment for volume) (20 mL +10 mL of normal saline +4 mg dexamethasone) Blood Aspirated: No Pain Paresthesia on Injection Noted: No Resistance on Injection: Normal Image Stored and Saved: Yes Events: Uneventful and Well Tolerated
--- NOTE | 2024-10-03 08:09 | P.OP ---
Date of Procedure: 10/03/24 Preoperative Diagnosis: Severe osteoarthritis right knee Postoperative Diagnosis: Severe osteoarthritis right knee Procedure(s) Performed: Right total knee arthroplasty Implants: [employer] II CR Oxinium cruciate retaining femoral component size 6, right [employer] nonporous tibial baseplate size 6, right [employer] II, XLPE Deep Dished articular insert, size 12 mm, Size 5-6, right [employer] Melva II resurfacing patellar component, oval, 32 mm All components were cemented using Palacos R bone cement The articulation is Oxinium on polyethylene Anesthesia: ALAINA Surgeon: Ruel Márquez Welding Instructor #1: Hannah Hurd Estimated Blood Loss (ml): 50 Pathology: none sent Condition: stable Disposition: PACU Indications for Procedure: The patient's knee is end-stage, and conservative management has failed. The operation of knee replacement has been discussed at length in the office, as well as potential risks and complications. These are inclusive of, but not limited to: Infection, bleeding, scarring, discomfort, stiffness, blood vessel and nerve damage, need for further surgery, failure to relieve symptoms, persistence, recurrence, or worsening of problems, loosening, dislocation, wear, blood clot, pulmonary embolism, , gait dysfunction, stiffness, and other risks as discussed in the office. Patient elects to proceed and the consent form has been signed. Operative Findings: The operative findings are consistent with severe osteoarthritis of the right knee Description of Procedure: The patient was seen in the preoperative area, the consent was reviewed and the operative site was marked with a skin marker. The patient verified the procedure and the operative site. An adductor canal pain catheter and an iPACK block were placed by anesthesia in the preoperative area. The patient was then brought to the operating room and positioned on the operating room table in the supine position. Preoperative antibiotics and a gram of tranexamic acid were given intravenously. A general anesthetic was administered by the anesthesia department. Care was taken to make sure that all pressure points were ad equately padded. A tourniquet was placed on the upper thigh and the lower extremity was prepped with ChloraPrep and draped in usual sterile fashion. A universal time-out was then performed which confirmed the patient's name, surgical site, ALLERGIES, and consent. The lower extremity was then exsanguinated and tourniquet was inflated to 250 mmHg. A standard anterior midline approach to the knee was performed. The skin and subcutaneous tissue were sharply dissected down to the patellar tendon. A medial parapatellar arthrotomy was then performed. The knee was then extended, the patellar was everted, and the knee was flexed. The infra-patellar fat pad was removed in order to enhance exposure. The anterior horns of both menisci were excised, and a release was performed to the posterior medial aspect of the knee. On gross visual inspection, there was complete loss of articular cartilage in the medial and patellofemoral joint spaces. There was also significant cartilage damage in the lateral compartment. There were multiple periarticular osteophytes globally about the knee which were then removed with a Ronguer. The femoral canal was then opened with the 9.5 mm intramedullary drill. The 8 mm intramedullary juaquin was then inserted into the femoral canal with the distal femoral cutting guide set for 5 of valgus. The distal femoral cutting block was then pinned in place. The intramedullary juaquin was then removed, and the distal femur was then cut. The cutting block was then removed and the cut was checked for symmetry. The resected bone was then measured to confirm the appropriate distal femoral resection. Next, the sizing guide was then placed and set for 3 external rotation based off of the epicondylar axis and Treutlen's line. Pins were then placed and the drill holes, and the femur was sized with the sizing stylus. The pins were then removed, and the sizing guide was then removed. The spikes of the appropriate size femoral block was then placed into the predrilled holes, and malleted into place. Two 45 mm pins were then placed into the fixation holes on the cutting block. An kristen wing was then used to ensure there would be no notching with the anterior cut. The anterior condyles were cut without notching. The anterior chord cut was then performed, followed by the posterior cut, posterior chamfer cut, and the anterior chamfer cut. The collateral ligaments were protected during the entire process. The cutting block was then removed. Any remaining bone and osteophytes were removed from the femur with a Ronguer. Attention was then directed to the tibia. The remaining ACL was removed with a Ronguer, and the tibia was then gently subluxed forward with a large bent knee retractor. Any remaining menisci were excised. The posterior lateral corner was cauterized in order to coagulate the lateral geniculate artery. The extra medullary tibial cutting guide was then placed, set for the appropriate rotation, slope, and depth of resection. The proximal tibia cutting guide was then pinned in place. Proximal tibia was then cut and sized. A curved osteotome was then used to remove any posterior osteophytes from the distal femur. The femoral trial was placed. A narrow saw blade was then used to remove the anterior intracondylar femoral bone. The CR notch trial was then placed. The tibial trial was placed with the appropriate-sized insert. The knee was able to fully extend and flex to 130 and was stable throughout all range of motion. The knee was then extended and the patella was everted. Patella was then measur ed, and then using an osteotomy guide, the patella was cut at the appropriate level. The patellar component was sized. The patellar drill guide was placed and the patella was drilled. The patella trial was then placed. The knee was then taken through range of motion with the patella trial and the patella tracked normally using the no thumbs technique. The patella trial was then removed. The knee was then flexed and lug holes were drilled through the femoral trial and the femoral trial was then removed. The tibial was then re- exposed, and the tibial broach guide was then pinned in place after it was set for the appropriate rotation to allow for the most coverage without overhang. The tibia was then reamed and broached. The femoral canal was plugged with autologous bone. The cut surfaces of bone were then irrigated with pulsatile lavage. The knee was also irrigated with Irrisept solution. The components were then opened, the cement was mixed. Cement was placed on the backside of the femoral, tibial, and patellar components. Cement was then applied to the tibial surface and pressurized into the surface using finger pressurization technique. The tibial component was then applied and excess cement was removed after it was impacted securely noted to be flush with the cut surface. In similar fashion, the cement was applied to the cut femoral surface, pressurized and using finger pressurization the component was impacted in place. Excess cement was removed. The polyethylene spacer was then implanted and locked into position. Patellar component was then applied in a similar technique and the patellar clamp was used to hold patella in place while the cement hardened. The knee was held in full extension while the cement hardened. Once the cement had fully hardened, the knee was reinspected. Any other cement extrusion was removed the final range of motion testing showed range of motion from 0-130 with excellent stability, both medial and laterally and appropriate alignment of the leg. Patella tracked normally. After the cemented hardened, the tourniquet was released and hemostasis was obtained. A second gram of transexamic acid was given intravenously. The knee was again irrigated. The knee was again taken through range of motion and found to be stable throughout all range of motion of 0-130, and the patella tracked normally. The fascia was then closed with 0 Vicryl followed by #2 strata fix suture. The subcutaneous tissue was closed with 3-0 Vicryl and 3-0 strata fix. Exofin glue was used for the skin and placed with the knee in flexion. After the glue had dried, and Optafoam silver impregnated dressing was applied. A lightly compressive dressing was applied using web roll and Clarence wrap. Patient was then transferred to the stretcher and taken to recovery room in stable condition. Sponge and needle counts were correct. The web production assistant HERON Nicholas was required due the complexity surgery and the need for a skilled surgical rn. She assisted in positioning, draping, retraction, and closure of the wound.
[2024-10-03 08:54] VITALS: TEMP 97.3
[2024-10-03 08:57] LABS: Glucose,Whole Blood 171 mg/dL (70-110)
[2024-10-03] MEDS: ROPIVACAINE 1,100 MG, SODIUM CHLORIDE 0.9% 500 ML 330 ML, EMPTY PAIN BALL 1 EACH MISCELLANE PRN (08:59)
--- NOTE | 2024-10-03 09:13 | XR ---
EXAMINATION TYPE: XR knee limited RT DATE OF EXAM: 10/03/2024 CLINICAL HISTORY: Postop Evaluation Two views of the right knee are submitted. Identified are changes of total knee arthroplasty with femoral and tibial components appearing well seated. Postsurgical soft tissue changes are noted. Alignment is anatomic. [facility], , 10/03/2024 9:11 AM
[2024-10-03 11:35] VITALS: BP 150/91; PULSE 53; RESP 16
[2024-10-03] MEDS ORDERED: ASPIRIN 325 MG TAB PO SCH (21:00)
[2024-10-03] MEDS ORDERED: SENNOSIDES-DOCUSATE SODIUM 1 EACH TAB PO SCH (21:00)
== END 2024-10-03 12:15 | disposition home health service (06) ==
LOC: OR 05:31
PROVIDERS: ATTEND Orthopaedic Surgery
DX: M17.11 Unilateral primary osteoarthritis, right knee (principal); G89.18 Other acute postprocedural pain; I10 Essential (primary) hypertension; I25.10 Atherosclerotic heart disease of native coronary artery without angina pectoris; Z95.5 Presence of coronary angioplasty implant and graft; E11.9 Type 2 diabetes mellitus without complications; E78.5 Hyperlipidemia, unspecified; N40.0 Benign prostatic hyperplasia without lower urinary tract symptoms; D47.2 Monoclonal gammopathy; I65.22 Occlusion and stenosis of left carotid artery; K21.9 Gastro-esophageal reflux disease without esophagitis; H91.90 Unspecified hearing loss, unspecified ear; Z79.82 Long term (current) use of aspirin; Z79.84 Long term (current) use of oral hypoglycemic drugs; Z79.899 Other long term (current) drug therapy; Z87.891 Personal history of nicotine dependence; Z85.46 Personal history of malignant neoplasm of prostate; Z96.652 Presence of left artificial knee joint
CPT/HCPCS: 27447; 97161; 64448; 64473; 73560; C1713; C1776; C1751; J2250; J0330; J1100; J2710; J0690 ×2; J2405; J2003; J3010; J2795; J2704; J2371; J1596